=== PATIENT | male | born 1975 | race Caucasian/White ===

== ENCOUNTER 2017-09-13 13:09 | Inpatient (IN) | payer OTHER ==
[2017-09-13] MEDS ORDERED: Sodium Chloride 0.9% 1,000 ML IV STA (14:40)
[2017-09-13 14:52] LABS: BASO # 0.2 K/uL (0.0-0.2); EOS # 0.2 K/uL (0.0-0.7); EOS % 1.2 % (0.0-4.0); LYMPH # 1.3 K/uL (1.0-4.3); LYMPH % 7.2 % (20.0-40.0); MEAN CELL VOLUME 82.8 fL (80.0-94.0); MEAN CORPUSCULAR HEMOGLOBIN 28.4 pg (27.0-31.0); MEAN CORPUSCULAR HGB CONC 34.3 g/dL (33.0-37.0); MEAN PLATELET VOLUME 7.6 fL (7.2-11.7); MONO # 0.9 K/uL (0.0-0.8); MONO % 5.1 % (0.0-10.0); NEUT # 14.8 K/uL (1.8-7.0); NEUT % 85.5 % (50.0-75.0); PLATELET COUNT 323 K/uL (130-400); RBC 4.91 Mil/uL (4.40-5.90); RED CELL DISTRIBUTION WIDTH 14.2 % (11.5-14.5); WHITE BLOOD COUNT 17.4 K/uL (4.8-10.8)
[2017-09-13 15:00] LABS: INR 1.4; PROTHROMBIN TIME 15.1 SECONDS (9.7-12.2)
[2017-09-13 15:02] LABS: SQUAMOUS EPITHIAL < 1 /hpf (0-5); URINE BACTERIA RARE (<OCC); URINE BILIRUBIN NEGATIVE (NEGATIVE); URINE BLOOD 1+ (NEGATIVE); URINE CLARITY Clear (Clear); URINE COLOR Amber (YELLOW); URINE GLUCOSE (UA) 3+ mg/dL (Normal); URINE LEUKOCYTE ESTERASE NEG Leu/uL (Negative); URINE PROTEIN NEGATIVE (NEGATIVE)
[2017-09-13 15:02] LABS: VENOUS BLOOD GAS PCO2 34 mmHg (40-60); VENOUS BLOOD GAS PO2 45 mm/Hg (30-55)
[2017-09-13] MEDS ORDERED: Sodium Chloride 0.9% 1,000 ML ONE ×2 (15:06→15:07)
--- NOTE | 2017-09-13 15:17 | RAD ---
PROCEDURE: CHEST RADIOGRAPH, 1 VIEW HISTORY: Fever, cough, RUQ pain COMPARISON: None available. FINDINGS: LUNGS: Medial right lung base patchy infiltrate linear left base atelectasis and/or infiltrate Lung volumes shallow PLEURA: No pneumothorax or pleural fluid seen. CARDIOVASCULAR: Normal. OSSEOUS STRUCTURES: No significant abnormalities. VISUALIZED UPPER ABDOMEN: Normal. OTHER FINDINGS: None. IMPRESSION: Bibasilar infiltrates with or without atelectasis as above
[2017-09-13 15:19] LABS: ALB/GLOB RATIO 0.9 (1.0-2.1); ALBUMIN 3.4 g/dL (3.5-5.0); ALT/SGPT 244 U/L (21-72); AST/SGOT 54 U/L (17-59); BLOOD UREA NITROGEN 13 mg/dL (9-20); GAMMA GLUTAMYL TRANSPEPTIDASE 871 U/L (8-78); GFR AFRICAN-AMERICAN > 60; GFR NON-AFRICAN AMERICAN > 60; LIPASE 13 U/L (23-300)
[2017-09-13 15:42] LABS: EOSINOPHIL 2 % (0-4); LYMPHOCYTE 7 % (20-40); MONOCYTE 6 % (0-10); NEUTROPHIL 85 % (50-75); PLATELET ESTIMATE NORMAL (NORMAL); TOTAL CELLS COUNTED 100
--- NOTE | 2017-09-13 16:19 | US ---
HISTORY: RUQ pain COMPARISON: None. TECHNIQUE: Sonographic evaluation of the right upper quadrant of the abdomen. FINDINGS: LIVER: Measures 18.9 cm in length. Normal echogenicity of the liver parenchyma. No mass. No intrahepatic bile duct dilatation. GALLBLADDER: Cholelithiasis identified within a E distended gallbladder with moderate mural thickening seen diffusely. Mild pericholecystic fluid is identified however there is no sonographic Aragon sign. COMMON BILE DUCT: Measures 5.0 mm. No stones. No dilatation. PANCREAS: The body and neck of the pancreas are unremarkable the remainder obscured by overlying bowel or stomach gas. RIGHT KIDNEY: Measures 12.7 cm in length. Normal echogenicity. No calculus, mass, or hydronephrosis. AORTA: No aneurysmal dilatation. IVC: Unremarkable. OTHER FINDINGS: None . IMPRESSION: Findings suspicious but not definitive for cholecystitis as described above. Further clinical correlation is recommended. No, there is no sonographic Aragon's sign elicited by our technologist. Partial imaging of the pancreas.
[2017-09-13] MEDS ORDERED: Piperacill/Tazo 4.5gm in Dex 4.5 GM/100 ML BAG IVPB STA (16:21)
[2017-09-13] MEDS ORDERED: Lactated Ringer's 1,000 ML IVB STA (16:31)
--- NOTE | 2017-09-13 16:31 | C.PDOC ---
Time Seen by Provider: 09/13/17 14:08 Chief Complaint (Nursing): Abdominal Pain History Per: Patient, Family Onset/Duration Of Symptoms: Days (5) Current Symptoms Are (Timing): Still Present Severity: Moderate Location Of Pain/Discomfort: RUQ Quality Of Discomfort: "Pain" Associated Symptoms: Fever, Nausea, Vomiting, Loss Of Appetite Exacerbating Factors: Food Alleviating Factors: None Additional History Per: Prior Records Past Medical History Reviewed: Historical Data, Nursing Documentation, Vital Signs Vital Signs: Last Vital Signs Temp 98.9 F 09/13/17 13:24 Pulse 99 H 09/13/17 13:24 Resp 20 09/13/17 13:24 BP 110/73 09/13/17 13:24 Pulse Ox 100 09/13/17 16:31 - Medical History PMH: Diabetes, Kidney Stones Surgical History: No Surg Hx Family History: States: Unknown Family Hx - Social History Hx Alcohol Use: No Hx Substance Use: No Review Of Systems Except As Marked, All Systems Reviewed And Found Negative. Constitutional: Positive for: Fever, Malaise Respiratory: Negative for: Shortness of Breath Gastrointestinal: Positive for: Nausea, Vomiting, Abdominal Pain Genitourinary: Negative for: Dysuria, Hematuria Musculoskeletal: Negative for: Neck Pain Skin: Negative for: Rash Neurological: Negative for: Weakness, Numbness Physical Exam - Physical Exam Appears: In Acute Distress (mild), Other (Ill appearing) Skin: Warm, Dry, Jaundice (mild) Head: Atraumatic, Normacephalic Eye(s): bilateral: PERRL, EOMI Neck: Normal ROM, Supple Cardiovascular: Rhythm Regular Respiratory: Normal Breath Sounds, No Accessory Muscle Use Gastrointestinal/Abdominal: Tenderness (RUQ) Back: No CVA Tenderness Extremity: Normal ROM, No Pedal Edema, No Calf Tenderness Neurological/Psych: Oriented x3, Normal Motor, Normal Sensation ED Course And Treatment - Laboratory Results Result Diagrams: 09/13/17 14:48 09/13/17 14:48 Lab Interpretation: Abnormal Interpretation Of Abnormal: Leukocytosis. Hyperglycemia. Abnormal LFTs. No acidosis. O2 Sat by Pulse Oximetry: 100 Pulse Ox Interpretation: Normal - Radiology CXR: Interpreted by Me, Viewed By Me CXR Interpretation: Yes: Other (Poor inspiration. Crowding around right hilum.) Progress - Interventions Interventions:: Observation, Intravenous fluid - Medications Administered Intravenous: Antiemetic, Opiate, Other (Abx) - Data Reviewed Data Reviewed: Lab, Diagnostic imaging, Old records - Patient Status Patient status: Partially improved - Continuity of Care Discussed patient case with:: Patient, Family-HIPPA compliant, ED Nurse, PMD, Covering for PMD - Patient Plan Patient Plan: Admission Disposition Discussed With : Eneida Granados Comment: He accepted pt on his service. Doctor Will See Patient In The: Hospital Counseled Patient/Family Regarding: Studies Performed, Diagnosis - Disposition Disposition: HOSPITALIZED Disposition Time: 16:38 Condition: SERIOUS - POA Present On Arrival: Poor Glycemic Control - Clinical Impression Clinical Impression: Acute cholecystitis, Uncontrolled diabetes mellitus, Abnormal LFTs
[2017-09-13] MEDS ORDERED: Piperacillin/Tazobact 3.375 gm 100 ML IVPB ONE (16:54)
[2017-09-13] MEDS ORDERED: Morphine 4 MG/ML VIAL ONE (16:54)
[2017-09-13] MEDS ORDERED: Lactated Ringer's 1,000 ML ONE (16:54)
[2017-09-13] MEDS: Sodium Chloride 0.9% 1,000 ML IV SCH ×2 (18:25→23:45)
[2017-09-13] MEDS: (Novolin R) Insulin Human Regular 100 units/ml vial SC SCH (18:49)
--- NOTE | 2017-09-13 19:09 | CP.PCM.CON ---
<Natalie Cordero - Last Filed: 09/13/17 19:22> History of Present Illness - History of Present Illness History of Present Illness: Surgery Consult: Dr. Aceves Pt is a 42M with PMHx significant for DM & nephrolithiasis who presented to with complaints of abdominal pain x 5 days. Pt states he has been having Right sided abdominal pain with radiation to the back since tuesday however he initially thought it was similar to his previous episode of kidney stones. When the pain did not get better he went to his PMD yesterday who pelon some labs & pt was instructed to come to the hospital secondary to elevated WBC & liver enzymes. In the ER, an US of the RUQ was done & showed GB with stones, wall thickening & pericholecystic fluid consistent with acute cholecystitis. surgery called to evaluate. Currently, pt is resting comfortably in bed. States his pain is a little better but still present. He states the pain is located in the RUQ & sharp in nature. He admits to one episode of vomiting at home 2 days ago. Admits to subjective fevers/chills at home. Denies other complaints at this time. Denies chest pain or SOB. PMHx: DM, nephrolithiasis s/p lithotripsy in 2017 PSHx: denies SocialHx: denies smoking, EtOH/drugs NKDA Review of Systems - Review of Systems All systems: reviewed and no additional remarkable complaints except (as per HPI ) Past Patient History - Past Social History Smoking Status: Never Smoked - RENAL Hx Kidney Stones: Yes - ENDOCRINE/METABOLIC Hx Diabetes Mellitus Type 2: Yes - PSYCHIATRIC Hx Substance Use: No - SURGICAL HISTORY Hx Surgeries: No - ANESTHESIA Hx Anesthesia: Yes Meds Allergies/Adverse Reactions: Allergies Allergy/AdvReac Type Severity Reaction Status Date / Time No Known Allergies Allergy Unverified 09/13/17 13:28 - Medications Medications: Current Medications Metronidazole (Flagyl) 250 mg in 50 mls @ 100 mls/hr IVPB Q8H [facility] PRN Reason: Protocol Stop: 09/18/17 20:01 Sodium Chloride (Sodium Chloride 0.9%) 1,000 mls @ 175 mls/hr IV .Q5H43M [facility] Last Admin: 09/13/17 18:25 Dose: 175 mls/hr Piperacillin Sod/Tazobactam (Sod 3.375 gm/ Sodium Chloride) 100 mls @ 200 mls/ hr IVPB Q6H [facility] PRN Reason: Protocol Insulin Human Regular (Novolin R) 0 unit SC Q6 [facility] PRN Reason: Protocol Last Admin: 09/13/17 18:49 Dose: 6 unit Morphine Sulfate (Morphine) 2 mg IVP Q4 PRN PRN Reason: Pain, moderate (4-7) Pantoprazole Sodium (Protonix Inj) 40 mg IVP DAILY [facility] Physical Exam - Constitutional Appears: Well, No Acute Distress - Head Exam Head Exam: ATRAUMATIC, NORMOCEPHALIC - Eye Exam Eye Exam: Normal appearance - ENT Exam ENT Exam: Mucous Membranes Moist - Respiratory Exam Respiratory Exam: NORMAL BREATHING PATTERN - Cardiovascular Exam Cardiovascular Exam: Tachycardia - GI/Abdominal Exam GI & Abdominal Exam: Guarding (voluntary), Soft, Tenderness (RUQ). absent: Distended, Rebound - Neurological Exam Neurological exam: Alert, Oriented x3 - Skin Skin Exam: Dry, Warm Results - Vital Signs Recent Vital Signs: Last Vital Signs Temp 99.6 F 09/13/17 17:55 Pulse 95 H 09/13/17 17:55 Resp 20 09/13/17 17:55 BP 131/83 09/13/17 17:55 Pulse Ox 94 L 09/13/17 17:55 - Labs Result Diagrams: 09/13/17 14:48 09/13/17 14:48 Labs: Laboratory Results - last 24 hr 09/13/17 09/13/17 09/13/17 13:33 14:48 14:48 WBC 17.4 H RBC 4.91 Hgb 14.0 Hct 40.7 MCV 82.8 MCH 28.4 MCHC 34.3 RDW 14.2 Plt Count 323 MPV 7.6 Neut % (Auto) 85.5 H Lymph % (Auto) 7.2 L [place] % (Auto) 5.1 Eos % (Auto) 1.2 Baso % (Auto) 1.0 Neut # (Auto) 14.8 H Lymph # (Auto) 1.3 [place] # (Auto) 0.9 H Eos # (Auto) 0.2 Baso # (Auto) 0.2 Neutrophils % (Manual) 85 H Lymphocytes % (Manual) 7 L Monocytes % (Manual) 6 Eosinophils % (Manual) 2 Platelet Estimate Normal RBC Morphology Normal PT 15.1 H INR 1.4 APTT 38 H pO2 VBG pH VBG pCO2 VBG HCO3 VBG Total CO2 VBG O2 Sat (Calc) VBG Base Excess VBG Potassium Glucose Lactate Sodium Potassium Chloride Carbon Dioxide Anion Gap BUN Creatinine Est GFR ( Amer) Est GFR (Non-Af Amer) POC Glucose (mg/dL) 394 H Random Glucose Calcium Total Bilirubin Direct Bilirubin GGT AST ALT Alkaline Phosphatase Total Protein Albumin Globulin Albumin/Globulin Ratio Lipase Venous Blood Potassium Urine Color Urine Clarity Urine pH Ur Specific [place] Urine Protein Urine Glucose (UA) Urine Ketones Urine Blood Urine Nitrate Urine Bilirubin Urine Urobilinogen Ur Leukocyte Esterase Urine WBC (Auto) Urine RBC (Auto) Ur Squamous Epith Cells Urine Bacteria B-Hydroxybutyrate 09/13/17 09/13/17 09/13/17 14:48 14:48 14:57 WBC RBC Hgb Hct MCV MCH MCHC RDW Plt Count MPV Neut % (Auto) Lymph % (Auto) [place] % (Auto) Eos % (Auto) Baso % (Auto) Neut # (Auto) Lymph # (Auto) [place] # (Auto) Eos # (Auto) Baso # (Auto) Neutrophils % (Manual) Lymphocytes % (Manual) Monocytes % (Manual) Eosinophils % (Manual) Platelet Estimate RBC Morphology PT INR APTT pO2 45 VBG pH 7.40 VBG pCO2 34 L VBG HCO3 22.1 VBG Total CO2 22.1 VBG O2 Sat (Calc) 86.7 H VBG Base Excess -3.0 L VBG Potassium 3.3 L Glucose 350 H Lactate 1.3 Sodium 130 L 134.0 Potassium 4.2 Chloride 93 L 100.0 Carbon Dioxide 24 Anion Gap 18 BUN 13 Creatinine 0.7 L Est GFR ( Amer) > 60 Est GFR (Non-Af Amer) > 60 POC Glucose (mg/dL) Random Glucose 406 H* Calcium 9.0 Total Bilirubin 3.8 H Direct Bilirubin 3.0 H GGT 871 H AST 54 ALT 244 H Alkaline Phosphatase 669 H Total Protein 7.2 Albumin 3.4 L Globulin 3.9 Albumin/Globulin Ratio 0.9 L Lipase 13 L Venous Blood Potassium 3.3 L Urine Color Kaylynn Urine Clarity Clear Urine pH 6.0 Ur Specific [place] 1.030 Urine Protein Negative Urine Glucose (UA) 3+ H Urine Ketones 1+ H Urine Blood 1+ H Urine Nitrate Negative Urine Bilirubin Negative Urine Urobilinogen 4.0 Ur Leukocyte Esterase Neg Urine WBC (Auto) 2 Urine RBC (Auto) 4 H Ur Squamous Epith Cells < 1 Urine Bacteria Rare B-Hydroxybutyrate 1.82 H 09/13/17 17:21 WBC RBC Hgb Hct MCV MCH MCHC RDW Plt Count MPV Neut % (Auto) Lymph % (Auto) [place] % (Auto) Eos % (Auto) Baso % (Auto) Neut # (Auto) Lymph # (Auto) [place] # (Auto) Eos # (Auto) Baso # (Auto) Neutrophils % (Manual) Lymphocytes % (Manual) Monocytes % (Manual) Eosinophils % (Manual) Platelet Estimate RBC Morphology PT INR APTT pO2 VBG pH VBG pCO2 VBG HCO3 VBG Total CO2 VBG O2 Sat (Calc) VBG Base Excess VBG Potassium Glucose Lactate Sodium Potassium Chloride Carbon Dioxide Anion Gap BUN Creatinine Est GFR ( Amer) Est GFR (Non-Af Amer) POC Glucose (mg/dL) 324 H Random Glucose Calcium Total Bilirubin Direct Bilirubin GGT AST ALT Alkaline Phosphatase Total Protein Albumin Globulin Albumin/Globulin Ratio Lipase Venous Blood Potassium Urine Color Urine Clarity Urine pH Ur Specific [place] Urine Protein Urine Glucose (UA) Urine Ketones Urine Blood Urine Nitrate Urine Bilirubin Urine Urobilinogen Ur Leukocyte Esterase Urine WBC (Auto) Urine RBC (Auto) Ur Squamous Epith Cells Urine Bacteria B-Hydroxybutyrate - Imaging and Cardiology US - abdomen Status: Image reviewed by me, Report reviewed by me Assessment & Plan - Assessment and Plan (Free Text) Assessment: 42M with cholecystitis r/o choledocholithiasis Plan: - NPO with IVF & IV ABX - Monitor LFTs - MRCP ordered; GI on board - plan for cholecystectomy pending MRCP results - d/w dr. Ketan Cordero, PGY-3 <Dagoberto Aceves B - Last Filed: 09/14/17 20:17> Meds - Medications Medications: Current Medications Acetaminophen (Tylenol 325mg Tab) 975 mg PO Q6 PRN PRN Reason: Fever >100.4 F Metronidazole (Flagyl) 250 mg in 50 mls @ 100 mls/hr IVPB Q8H [facility] PRN Reason: Protocol Stop: 09/18/17 20:01 Last Admin: 09/14/17 11:57 Dose: 100 mls/hr Sodium Chloride (Sodium Chloride 0.9%) 1,000 mls @ 175 mls/hr IV .Q5H43M [facility] Last Admin: 09/14/17 18:00 Dose: 0 mls Piperacillin Sod/Tazobactam (Sod 3.375 gm/ Sodium Chloride) 100 mls @ 200 mls/ hr IVPB Q6H [facility] PRN Reason: Protocol Last Admin: 09/14/17 17:10 Dose: 100 mls Insulin Human Regular (Novolin R) 0 unit SC Q6 [facility] PRN Reason: Protocol Last Admin: 09/14/17 11:59 Dose: Not Given Morphine Sulfate (Morphine) 2 mg IVP Q4 PRN PRN Reason: Pain, moderate (4-7) Last Admin: 09/14/17 05:57 Dose: 2 mg Ondansetron HCl (Zofran Inj) 4 mg IVP Q4 PRN PRN Reason: Nausea/Vomiting Oxycodone/Acetaminophen (Percocet 5/325 Mg Tab) 2 tab PO Q4H PRN PRN Reason: Pain, Mild (1-3) Stop: 09/17/17 16:52 Pantoprazole Sodium (Protonix Inj) 40 mg IVP DAILY [facility] Last Admin: 09/14/17 10:01 Dose: 40 mg Results - Vital Signs Recent Vital Signs: Last Vital Signs Temp 98.1 F 09/14/17 18:00 Pulse 101 H 09/14/17 19:20 Resp 20 09/14/17 18:00 BP 125/81 09/14/17 18:00 Pulse Ox 97 09/14/17 18:00 - Labs Result Diagrams: 09/14/17 07:28 09/14/17 07:28 Labs: Laboratory Results - last 24 hr 09/13/17 09/14/17 09/14/17 23:00 03:24 05:15 WBC RBC Hgb Hct MCV MCH MCHC RDW Plt Count MPV Neut % (Auto) Lymph % (Auto) [place] % (Auto) Eos % (Auto) Baso % (Auto) Neut # (Auto) Lymph # (Auto) [place] # (Auto) Eos # (Auto) Baso # (Auto) Neutrophils % (Manual) Band Neutrophils % Lymphocytes % (Manual) Monocytes % (Manual) Eosinophils % (Manual) Platelet Estimate RBC Morphology Sodium Potassium Chloride Carbon Dioxide Anion Gap BUN Creatinine Est GFR ( Amer) Est GFR (Non-Af Amer) POC Glucose (mg/dL) 328 H 240 H 281 H Random Glucose Calcium Total Bilirubin AST ALT Alkaline Phosphatase Total Protein Albumin Globulin Albumin/Globulin Ratio 09/14/17 09/14/17 09/14/17 07:28 07:28 07:28 WBC 13.6 H RBC 4.36 L Hgb 12.3 Hct 36.2 MCV 83.0 MCH 28.2 MCHC 34.0 RDW 14.0 Plt Count 324 MPV 7.7 Neut % (Auto) 85.3 H Lymph % (Auto) 6.7 L [place] % (Auto) 6.0 Eos % (Auto) 1.7 Baso % (Auto) 0.3 Neut # (Auto) 11.6 H Lymph # (Auto) 0.9 L [place] # (Auto) 0.8 Eos # (Auto) 0.2 Baso # (Auto) 0.0 Neutrophils % (Manual) 83 H Band Neutrophils % 2 Lymphocytes % (Manual) 7 L Monocytes % (Manual) 7 Eosinophils % (Manual) 1 Platelet Estimate Normal RBC Morphology Normal Sodium 137 Potassium 3.8 Chloride 102 Carbon Dioxide 21 L Anion Gap 18 BUN 8 L Creatinine 0.5 L Est GFR ( Amer) > 60 Est GFR (Non-Af Amer) > 60 POC Glucose (mg/dL) 279 H Random Glucose 278 H Calcium 8.1 L Total Bilirubin 2.4 H AST 32 ALT 144 H D Alkaline Phosphatase 536 H Total Protein 6.2 L Albumin 2.9 L Globulin 3.3 Albumin/Globulin Ratio 0.9 L 09/14/17 09/14/17 11:31 17:11 WBC RBC Hgb Hct MCV MCH MCHC RDW Plt Count MPV Neut % (Auto) Lymph % (Auto) [place] % (Auto) Eos % (Auto) Baso % (Auto) Neut # (Auto) Lymph # (Auto) [place] # (Auto) Eos # (Auto) Baso # (Auto) Neutrophils % (Manual) Band Neutrophils % Lymphocytes % (Manual) Monocytes % (Manual) Eosinophils % (Manual) Platelet Estimate RBC Morphology Sodium Potassium Chloride Carbon Dioxide Anion Gap BUN Creatinine Est GFR ( Amer) Est GFR (Non-Af Amer) POC Glucose (mg/dL) 247 H 317 H Random Glucose Calcium Total Bilirubin AST ALT Alkaline Phosphatase Total Protein Albumin Globulin Albumin/Globulin Ratio Attending/Attestation - Attestation I have personally seen and examined this patient.: Yes I have fully participated in the care of the patient.: Yes I have reviewed all pertinent clinical information: Yes Notes (Text): Pt was seen and examined at bedside Agree with above note and assessment Pt with severe pain and nauses Abdomen: Soft, Tender in RUQ, ND Labs and radiology reviewed Ass: Acute Cholecystitis with abnormal LFTs Plan : MRCP GI consult for ERCP Medical clearance EKG ,CXR CBC, BMP,PT/INR Plan d.w pt in detail Risk and benefit explained in detail.
[2017-09-13] MEDS: metroNIDAZOLE IV 250mg/50 ml 250 MG/50 ML BAG IVPB SCH (20:51)
[2017-09-13] MEDS: Piperacillin/Tazobact 3.375 GM in Sodium Chloride 100 ML IVPB SCH (22:15)
--- NOTE | 2017-09-13 22:39 | CP.PCM.HP ---
History of Present Illness - History of Present Illness History of Present Illness: Chief complaint: Abdominal pain History of present illness: 42-year-old male with a history of diabetes and renal stones. Patient has a history of long-standing diabetes. He was in his usual state of health until 1 week ago. A week ago patient started having some pain in the left upper extremity while he was walking in the output. He went to the chiropractic for that, and he had some massage therapy, but no improvement. And he started having some pain over the abdominal area especially in the right upper quadrant, associated with some sharp pain, and some nausea. He went to see the PMD. PMD did blood test, showing evidence of elevated WBC, and also blood sugar and he was sent to the emergency room for a suspected intra-abdominal process. In the emergency room patient having increasing pain in the right upper quadrant region, and associated with nausea and episodes of vomiting and shortness of breath. He was having difficulty in deep breath. He did not have any chest pain, she was also having fever and chills yesterday. This morning patient was not able to eat anything by mouth because of the worsening pain He did not have any diarrhea. No recent sick exposure. Past medical history: Diabetes, renal stones, headache history of lithotripsy in 2017 Surgical history otherwise none Social history: Non-smoker nonalcoholic Patient lives by himself. No known drug allergy Review of system: Patient is currently having no headache or visual symptoms, dryness of the mouth noted, also complaining of right upper quadrant pain nausea and episodes of vomiting no diarrhea no leg pain On examination: Vital signs are stable. Chest good air entry bilaterally Regular heart sounds Abdominal tenderness in the right upper quadrant nodes are noted No rebound tenderness noted. Pedal edema negative Labs reviewed Elevated WBC noted, elevated liver function test and alkaline phosphatase noted Sonogram of the abdomen showing evidence of gallstones, and pericolic fluid and the gallbladder wall thickening noted suspected acute cholecystitis Patient received intravenous antibiotic in the emergency room, and needed hospitalization. Patient also had uncontrolled diabetes Assessment and recommendation: 42-year-old male now admitted with a possible uncontrolled diabetes, and associate with a possible acute cholecystitis, cholelithiasis, and possible cholangitis. Currently receiving intravenous antibiotic. We will closely monitor. MRCP ordered. Surgical consultation ordered. Evaluation by drums teacher advised. Spoke to the drums teacher. We will continue the IV hydration. We will follow the patient. Present on Admission - Present on Admission Any Indicators Present on Admission: No Urinary Catheter: No Decubitus Ulcer Present: No Past Patient History - Past Medical History & Family History Past Medical History?: Yes - Past Social History Smoking Status: Never Smoked - RENAL Hx Kidney Stones: Yes (lithotripsy 2016) - ENDOCRINE/METABOLIC Hx Diabetes Mellitus Type 2: Yes - MUSCULOSKELETAL/RHEUMATOLOGICAL Hx Falls: No - PSYCHIATRIC Hx Substance Use: No - SURGICAL HISTORY Hx Surgeries: No - ANESTHESIA Hx Anesthesia: Yes Meds Allergies/Adverse Reactions: Allergies Allergy/AdvReac Type Severity Reaction Status Date / Time No Known Allergies Allergy Unverified 09/13/17 13:28 Results - Vital Signs Recent Vital Signs: Last Vital Signs Temp 99.6 F 09/13/17 17:55 Pulse 95 H 09/13/17 17:55 Resp 20 09/13/17 17:55 BP 131/83 09/13/17 17:55 Pulse Ox 94 L 09/13/17 17:55 - Labs Result Diagrams: 09/13/17 14:48 09/13/17 14:48 Labs: Laboratory Results - last 24 hr 09/13/17 09/13/17 09/13/17 13:33 14:48 14:48 WBC 17.4 H RBC 4.91 Hgb 14.0 Hct 40.7 MCV 82.8 MCH 28.4 MCHC 34.3 RDW 14.2 Plt Count 323 MPV 7.6 Neut % (Auto) 85.5 H Lymph % (Auto) 7.2 L [place] % (Auto) 5.1 Eos % (Auto) 1.2 Baso % (Auto) 1.0 Neut # (Auto) 14.8 H Lymph # (Auto) 1.3 [place] # (Auto) 0.9 H Eos # (Auto) 0.2 Baso # (Auto) 0.2 Neutrophils % (Manual) 85 H Lymphocytes % (Manual) 7 L Monocytes % (Manual) 6 Eosinophils % (Manual) 2 Platelet Estimate Normal RBC Morphology Normal PT 15.1 H INR 1.4 APTT 38 H pO2 VBG pH VBG pCO2 VBG HCO3 VBG Total CO2 VBG O2 Sat (Calc) VBG Base Excess VBG Potassium Glucose Lactate Sodium Potassium Chloride Carbon Dioxide Anion Gap BUN Creatinine Est GFR ( Amer) Est GFR (Non-Af Amer) POC Glucose (mg/dL) 394 H Random Glucose Calcium Total Bilirubin Direct Bilirubin GGT AST ALT Alkaline Phosphatase Total Protein Albumin Globulin Albumin/Globulin Ratio Lipase Venous Blood Potassium Urine Color Urine Clarity Urine pH Ur Specific [place] Urine Protein Urine Glucose (UA) Urine Ketones Urine Blood Urine Nitrate Urine Bilirubin Urine Urobilinogen Ur Leukocyte Esterase Urine WBC (Auto) Urine RBC (Auto) Ur Squamous Epith Cells Urine Bacteria B-Hydroxybutyrate 09/13/17 09/13/17 09/13/17 14:48 14:48 14:57 WBC RBC Hgb Hct MCV MCH MCHC RDW Plt Count MPV Neut % (Auto) Lymph % (Auto) [place] % (Auto) Eos % (Auto) Baso % (Auto) Neut # (Auto) Lymph # (Auto) [place] # (Auto) Eos # (Auto) Baso # (Auto) Neutrophils % (Manual) Lymphocytes % (Manual) Monocytes % (Manual) Eosinophils % (Manual) Platelet Estimate RBC Morphology PT INR APTT pO2 45 VBG pH 7.40 VBG pCO2 34 L VBG HCO3 22.1 VBG Total CO2 22.1 VBG O2 Sat (Calc) 86.7 H VBG Base Excess -3.0 L VBG Potassium 3.3 L Glucose 350 H Lactate 1.3 Sodium 130 L 134.0 Potassium 4.2 Chloride 93 L 100.0 Carbon Dioxide 24 Anion Gap 18 BUN 13 Creatinine 0.7 L Est GFR ( Amer) > 60 Est GFR (Non-Af Amer) > 60 POC Glucose (mg/dL) Random Glucose 406 H* Calcium 9.0 Total Bilirubin 3.8 H Direct Bilirubin 3.0 H GGT 871 H AST 54 ALT 244 H Alkaline Phosphatase 669 H Total Protein 7.2 Albumin 3.4 L Globulin 3.9 Albumin/Globulin Ratio 0.9 L Lipase 13 L Venous Blood Potassium 3.3 L Urine Color Kaylynn Urine Clarity Clear Urine pH 6.0 Ur Specific [place] 1.030 Urine Protein Negative Urine Glucose (UA) 3+ H Urine Ketones 1+ H Urine Blood 1+ H Urine Nitrate Negative Urine Bilirubin Negative Urine Urobilinogen 4.0 Ur Leukocyte Esterase Neg Urine WBC (Auto) 2 Urine RBC (Auto) 4 H Ur Squamous Epith Cells < 1 Urine Bacteria Rare B-Hydroxybutyrate 1.82 H 09/13/17 09/13/17 17:21 20:10 WBC RBC Hgb Hct MCV MCH MCHC RDW Plt Count MPV Neut % (Auto) Lymph % (Auto) [place] % (Auto) Eos % (Auto) Baso % (Auto) Neut # (Auto) Lymph # (Auto) [place] # (Auto) Eos # (Auto) Baso # (Auto) Neutrophils % (Manual) Lymphocytes % (Manual) Monocytes % (Manual) Eosinophils % (Manual) Platelet Estimate RBC Morphology PT INR APTT pO2 VBG pH VBG pCO2 VBG HCO3 VBG Total CO2 VBG O2 Sat (Calc) VBG Base Excess VBG Potassium Glucose Lactate Sodium Potassium Chloride Carbon Dioxide Anion Gap BUN Creatinine Est GFR ( Amer) Est GFR (Non-Af Amer) POC Glucose (mg/dL) 324 H 347 H Random Glucose Calcium Total Bilirubin Direct Bilirubin GGT AST ALT Alkaline Phosphatase Total Protein Albumin Globulin Albumin/Globulin Ratio Lipase Venous Blood Potassium Urine Color Urine Clarity Urine pH Ur Specific [place] Urine Protein Urine Glucose (UA) Urine Ketones Urine Blood Urine Nitrate Urine Bilirubin Urine Urobilinogen Ur Leukocyte Esterase Urine WBC (Auto) Urine RBC (Auto) Ur Squamous Epith Cells Urine Bacteria B-Hydroxybutyrate
[2017-09-14] MEDS: (Novolin R) Insulin Human Regular 100 units/ml vial SC SCH ×4 (00:40→18:00)
[2017-09-14] MEDS: Sodium Chloride 0.9% 1,000 ML IV SCH ×6 (01:30→21:50)
[2017-09-14] MEDS: metroNIDAZOLE IV 250mg/50 ml 250 MG/50 ML BAG IVPB SCH ×3 (04:09→20:00)
[2017-09-14] MEDS: Piperacillin/Tazobact 3.375 GM in Sodium Chloride 100 ML IVPB SCH ×4 (05:14→22:54)
[2017-09-14] MEDS: Morphine 4 MG/ML VIAL IVP PRN (05:57)
[2017-09-14 07:46] LABS: BASO % 0.3 % (0.0-2.0); EOS # 0.2 K/uL (0.0-0.7); EOS % 1.7 % (0.0-4.0); HEMOGLOBIN 12.3 g/dL (12.0-18.0); LYMPH # 0.9 K/uL (1.0-4.3); LYMPH % 6.7 % (20.0-40.0); MEAN CORPUSCULAR HEMOGLOBIN 28.2 pg (27.0-31.0); MEAN PLATELET VOLUME 7.7 fL (7.2-11.7); MONO # 0.8 K/uL (0.0-0.8); NEUT # 11.6 K/uL (1.8-7.0); NEUT % 85.3 % (50.0-75.0); PLATELET COUNT 324 K/uL (130-400); RBC 4.36 Mil/uL (4.40-5.90); WHITE BLOOD COUNT 13.6 K/uL (4.8-10.8)
[2017-09-14 07:52] LABS: ALB/GLOB RATIO 0.9 (1.0-2.1); ALBUMIN 2.9 g/dL (3.5-5.0); ALT/SGPT 144 U/L (21-72); AST/SGOT 32 U/L (17-59); BLOOD UREA NITROGEN 8 mg/dL (9-20); CALCIUM 8.1 mg/dl (8.6-10.4); GFR AFRICAN-AMERICAN > 60; GFR NON-AFRICAN AMERICAN > 60
[2017-09-14 08:24] LABS: BANDS 2 % (0-2); EOSINOPHIL 1 % (0-4); LYMPHOCYTE 7 % (20-40); MONOCYTE 7 % (0-10); NEUTROPHIL 83 % (50-75); PLATELET ESTIMATE NORMAL (NORMAL); TOTAL CELLS COUNTED 100
[2017-09-14] MEDS ORDERED: Gadodiamide 287 mg/ml 20 ml IV ONE (09:00)
--- NOTE | 2017-09-14 09:40 | CP.PCM.CON ---
<Wally Beckett - Last Filed: 09/14/17 09:40> History of Present Illness - History of Present Illness History of Present Illness: PGY4 Initial GI Consult Anurag Gant is a 42-M with a history of diabetes and renal stones who presented to the ER with RUQ pain. Pt states that the onset was 1 week prior. He notes being in his normal states of health prior to this. He noted that the pain was sudden and sharp with some radiation to the LUQ. He also experienced associated nausea and bilious vomiting. Aggravating factors: meals, alleviating factors: none. Denies any fever, chills or diaphoresis. He notes having a hx of chronic diarrhea for many years. Had a colonoscopy with Dr. Devi 2 years prior and was told it was negative. Since then, he has tried eliminating different foods from his diet with minimal reduction in symptoms. Since admission, his pain has decreased slight and he is hungry/ Abd u/s possible acute nichole, CBD 5mm w/o cbd dilatation and filling defect. MRCP read is pending. LFTs are elevated PMHx: DM, renal stone PSHx: lithotripsy Social Hx: denies alcohol or smoking or illicit drug use Family hx: reviewed; no Gi malignancy ROS: 12 point ROS conducted, neg other than above Past Patient History - Past Medical History & Family History Past Medical History?: Yes - Past Social History Smoking Status: Never Smoked - RENAL Hx Kidney Stones: Yes (lithotripsy 2017) - ENDOCRINE/METABOLIC Hx Diabetes Mellitus Type 2: Yes - MUSCULOSKELETAL/RHEUMATOLOGICAL Hx Falls: No - PSYCHIATRIC Hx Substance Use: No - SURGICAL HISTORY Hx Surgeries: No - ANESTHESIA Hx Anesthesia: Yes Meds Allergies/Adverse Reactions: Allergies Allergy/AdvReac Type Severity Reaction Status Date / Time No Known Allergies Allergy Unverified 09/13/17 13:28 - Medications Medications: Current Medications Metronidazole (Flagyl) 250 mg in 50 mls @ 100 mls/hr IVPB Q8H [facility] PRN Reason: Protocol Stop: 09/18/17 20:01 Last Admin: 09/14/17 04:09 Dose: 100 mls/hr Sodium Chloride (Sodium Chloride 0.9%) 1,000 mls @ 175 mls/hr IV .Q5H43M [facility] Last Admin: 09/14/17 06:01 Dose: Not Given Piperacillin Sod/Tazobactam (Sod 3.375 gm/ Sodium Chloride) 100 mls @ 200 mls/ hr IVPB Q6H [facility] PRN Reason: Protocol Last Admin: 09/14/17 05:14 Dose: 200 mls/hr Insulin Human Regular (Novolin R) 0 unit SC Q6 [facility] PRN Reason: Protocol Last Admin: 09/14/17 06:02 Dose: Not Given Morphine Sulfate (Morphine) 2 mg IVP Q4 PRN PRN Reason: Pain, moderate (4-7) Last Admin: 09/14/17 05:57 Dose: 2 mg Pantoprazole Sodium (Protonix Inj) 40 mg IVP DAILY [facility] Pneumococcal Polyvalent Vaccine (Pneumovax 23 Vaccine) 0.5 ml IM .ONCE ONE Stop: 09/14/17 10:01 Physical Exam - Constitutional Appears: Well, No Acute Distress - Head Exam Head Exam: ATRAUMATIC, NORMOCEPHALIC - Eye Exam Eye Exam: Normal appearance - ENT Exam ENT Exam: Normal Exam - Neck Exam Neck exam: Positive for: Normal Inspection - Respiratory Exam Respiratory Exam: Clear to Auscultation Bilateral, NORMAL BREATHING PATTERN. absent: Rales, Rhonchi, Wheezes, Respiratory Distress - Cardiovascular Exam Cardiovascular Exam: REGULAR RHYTHM, +S1, +S2 - GI/Abdominal Exam GI & Abdominal Exam: Normal Bowel Sounds, Soft, Tenderness (RUQ). absent: Diminished Bowel Sounds, Distended, Firm, Guarding, Hernia, Pulsatile Mass, Rebound, Rigid - Extremities Exam Extremities exam: Negative for: joint swelling, pedal edema - Back Exam Back exam: NORMAL INSPECTION - Neurological Exam Neurological exam: Alert, Oriented x3 - Skin Skin Exam: Dry, Intact, Normal Color, Warm Results - Vital Signs Recent Vital Signs: Last Vital Signs Temp 98.8 F 09/13/17 23:29 Pulse 85 09/13/17 23:29 Resp 20 09/13/17 23:29 BP 126/80 09/13/17 23:29 Pulse Ox 97 09/13/17 23:29 - Labs Result Diagrams: 09/14/17 07:28 09/14/17 07:28 Labs: Laboratory Results - last 24 hr 09/13/17 09/13/17 09/13/17 13:33 14:48 14:48 WBC 17.4 H RBC 4.91 Hgb 14.0 Hct 40.7 MCV 82.8 MCH 28.4 MCHC 34.3 RDW 14.2 Plt Count 323 MPV 7.6 Neut % (Auto) 85.5 H Lymph % (Auto) 7.2 L [place] % (Auto) 5.1 Eos % (Auto) 1.2 Baso % (Auto) 1.0 Neut # (Auto) 14.8 H Lymph # (Auto) 1.3 [place] # (Auto) 0.9 H Eos # (Auto) 0.2 Baso # (Auto) 0.2 Neutrophils % (Manual) 85 H Band Neutrophils % Lymphocytes % (Manual) 7 L Monocytes % (Manual) 6 Eosinophils % (Manual) 2 Platelet Estimate Normal RBC Morphology Normal PT 15.1 H INR 1.4 APTT 38 H pO2 VBG pH VBG pCO2 VBG HCO3 VBG Total CO2 VBG O2 Sat (Calc) VBG Base Excess VBG Potassium Glucose Lactate Sodium Potassium Chloride Carbon Dioxide Anion Gap BUN Creatinine Est GFR ( Amer) Est GFR (Non-Af Amer) POC Glucose (mg/dL) 394 H Random Glucose Calcium Total Bilirubin Direct Bilirubin GGT AST ALT Alkaline Phosphatase Total Protein Albumin Globulin Albumin/Globulin Ratio Lipase Venous Blood Potassium Urine Color Urine Clarity Urine pH Ur Specific [place] Urine Protein Urine Glucose (UA) Urine Ketones Urine Blood Urine Nitrate Urine Bilirubin Urine Urobilinogen Ur Leukocyte Esterase Urine WBC (Auto) Urine RBC (Auto) Ur Squamous Epith Cells Urine Bacteria B-Hydroxybutyrate 09/13/17 09/13/17 09/13/17 14:48 14:48 14:57 WBC RBC Hgb Hct MCV MCH MCHC RDW Plt Count MPV Neut % (Auto) Lymph % (Auto) [place] % (Auto) Eos % (Auto) Baso % (Auto) Neut # (Auto) Lymph # (Auto) [place] # (Auto) Eos # (Auto) Baso # (Auto) Neutrophils % (Manual) Band Neutrophils % Lymphocytes % (Manual) Monocytes % (Manual) Eosinophils % (Manual) Platelet Estimate RBC Morphology PT INR APTT pO2 45 VBG pH 7.40 VBG pCO2 34 L VBG HCO3 22.1 VBG Total CO2 22.1 VBG O2 Sat (Calc) 86.7 H VBG Base Excess -3.0 L VBG Potassium 3.3 L Glucose 350 H Lactate 1.3 Sodium 130 L 134.0 Potassium 4.2 Chloride 93 L 100.0 Carbon Dioxide 24 Anion Gap 18 BUN 13 Creatinine 0.7 L Est GFR ( Amer) > 60 Est GFR (Non-Af Amer) > 60 POC Glucose (mg/dL) Random Glucose 406 H* Calcium 9.0 Total Bilirubin 3.8 H Direct Bilirubin 3.0 H GGT 871 H AST 54 ALT 244 H Alkaline Phosphatase 669 H Total Protein 7.2 Albumin 3.4 L Globulin 3.9 Albumin/Globulin Ratio 0.9 L Lipase 13 L Venous Blood Potassium 3.3 L Urine Color Kaylynn Urine Clarity Clear Urine pH 6.0 Ur Specific [place] 1.030 Urine Protein Negative Urine Glucose (UA) 3+ H Urine Ketones 1+ H Urine Blood 1+ H Urine Nitrate Negative Urine Bilirubin Negative Urine Urobilinogen 4.0 Ur Leukocyte Esterase Neg Urine WBC (Auto) 2 Urine RBC (Auto) 4 H Ur Squamous Epith Cells < 1 Urine Bacteria Rare B-Hydroxybutyrate 1.82 H 09/13/17 09/13/17 09/13/17 17:21 20:10 23:00 WBC RBC Hgb Hct MCV MCH MCHC RDW Plt Count MPV Neut % (Auto) Lymph % (Auto) [place] % (Auto) Eos % (Auto) Baso % (Auto) Neut # (Auto) Lymph # (Auto) [place] # (Auto) Eos # (Auto) Baso # (Auto) Neutrophils % (Manual) Band Neutrophils % Lymphocytes % (Manual) Monocytes % (Manual) Eosinophils % (Manual) Platelet Estimate RBC Morphology PT INR APTT pO2 VBG pH VBG pCO2 VBG HCO3 VBG Total CO2 VBG O2 Sat (Calc) VBG Base Excess VBG Potassium Glucose Lactate Sodium Potassium Chloride Carbon Dioxide Anion Gap BUN Creatinine Est GFR ( Amer) Est GFR (Non-Af Amer) POC Glucose (mg/dL) 324 H 347 H 328 H Random Glucose Calcium Total Bilirubin Direct Bilirubin GGT AST ALT Alkaline Phosphatase Total Protein Albumin Globulin Albumin/Globulin Ratio Lipase Venous Blood Potassium Urine Color Urine Clarity Urine pH Ur Specific [place] Urine Protein Urine Glucose (UA) Urine Ketones Urine Blood Urine Nitrate Urine Bilirubin Urine Urobilinogen Ur Leukocyte Esterase Urine WBC (Auto) Urine RBC (Auto) Ur Squamous Epith Cells Urine Bacteria B-Hydroxybutyrate 09/14/17 09/14/17 09/14/17 03:24 05:15 07:28 WBC 13.6 H RBC 4.36 L Hgb 12.3 Hct 36.2 MCV 83.0 MCH 28.2 MCHC 34.0 RDW 14.0 Plt Count 324 MPV 7.7 Neut % (Auto) 85.3 H Lymph % (Auto) 6.7 L [place] % (Auto) 6.0 Eos % (Auto) 1.7 Baso % (Auto) 0.3 Neut # (Auto) 11.6 H Lymph # (Auto) 0.9 L [place] # (Auto) 0.8 Eos # (Auto) 0.2 Baso # (Auto) 0.0 Neutrophils % (Manual) 83 H Band Neutrophils % 2 Lymphocytes % (Manual) 7 L Monocytes % (Manual) 7 Eosinophils % (Manual) 1 Platelet Estimate Normal RBC Morphology Normal PT INR APTT pO2 VBG pH VBG pCO2 VBG HCO3 VBG Total CO2 VBG O2 Sat (Calc) VBG Base Excess VBG Potassium Glucose Lactate Sodium Potassium Chloride Carbon Dioxide Anion Gap BUN Creatinine Est GFR ( Amer) Est GFR (Non-Af Amer) POC Glucose (mg/dL) 240 H 281 H Random Glucose Calcium Total Bilirubin Direct Bilirubin GGT AST ALT Alkaline Phosphatase Total Protein Albumin Globulin Albumin/Globulin Ratio Lipase Venous Blood Potassium Urine Color Urine Clarity Urine pH Ur Specific [place] Urine Protein Urine Glucose (UA) Urine Ketones Urine Blood Urine Nitrate Urine Bilirubin Urine Urobilinogen Ur Leukocyte Esterase Urine WBC (Auto) Urine RBC (Auto) Ur Squamous Epith Cells Urine Bacteria B-Hydroxybutyrate 09/14/17 09/14/17 07:28 07:28 WBC RBC Hgb Hct MCV MCH MCHC RDW Plt Count MPV Neut % (Auto) Lymph % (Auto) [place] % (Auto) Eos % (Auto) Baso % (Auto) Neut # (Auto) Lymph # (Auto) [place] # (Auto) Eos # (Auto) Baso # (Auto) Neutrophils % (Manual) Band Neutrophils % Lymphocytes % (Manual) Monocytes % (Manual) Eosinophils % (Manual) Platelet Estimate RBC Morphology PT INR APTT pO2 VBG pH VBG pCO2 VBG HCO3 VBG Total CO2 VBG O2 Sat (Calc) VBG Base Excess VBG Potassium Glucose Lactate Sodium 137 Potassium 3.8 Chloride 102 Carbon Dioxide 21 L Anion Gap 18 BUN 8 L Creatinine 0.5 L Est GFR ( Amer) > 60 Est GFR (Non-Af Amer) > 60 POC Glucose (mg/dL) 279 H Random Glucose 278 H Calcium 8.1 L Total Bilirubin 2.4 H Direct Bilirubin GGT AST 32 ALT 144 H D Alkaline Phosphatase 536 H Total Protein 6.2 L Albumin 2.9 L Globulin 3.3 Albumin/Globulin Ratio 0.9 L Lipase Venous Blood Potassium Urine Color Urine Clarity Urine pH Ur Specific [place] Urine Protein Urine Glucose (UA) Urine Ketones Urine Blood Urine Nitrate Urine Bilirubin Urine Urobilinogen Ur Leukocyte Esterase Urine WBC (Auto) Urine RBC (Auto) Ur Squamous Epith Cells Urine Bacteria B-Hydroxybutyrate Assessment & Plan - Assessment and Plan (Free Text) Assessment: Anurag Gant is a 42M w/ hx of DM and renal stones who presents with RUQ pain Elevated liver enzymes and bilirubin Possible Acute Cholecystitis hx of DM chronic diarrhea Plan: -MRCP done waiting on final read -as per our interpretation, no obvious cbd dilatation or filling defect; will wait on final radiologist final read -will send for hep viral serology and autoimmune -U/S reviewed -recommend f/u w/ Dr. Devi as an outpt for chronic diarrhea -will send infectious w/u -recommend lap nichole -diet as per surgery -no plan for procedure at this time, will wait on final MRCP read D/W Dr. Shaw <Frde Shaw - Last Filed: 09/14/17 11:15> Meds - Medications Medications: Current Medications Metronidazole (Flagyl) 250 mg in 50 mls @ 100 mls/hr IVPB Q8H [facility] PRN Reason: Protocol Stop: 09/18/17 20:01 Last Admin: 09/14/17 04:09 Dose: 100 mls/hr Sodium Chloride (Sodium Chloride 0.9%) 1,000 mls @ 175 mls/hr IV .Q5H43M [facility] Last Admin: 09/14/17 10:04 Dose: 175 mls/hr Piperacillin Sod/Tazobactam (Sod 3.375 gm/ Sodium Chloride) 100 mls @ 200 mls/ hr IVPB Q6H [facility] PRN Reason: Protocol Last Admin: 09/14/17 10:01 Dose: 200 mls/hr Insulin Human Regular (Novolin R) 0 unit SC Q6 [facility] PRN Reason: Protocol Last Admin: 09/14/17 06:02 Dose: Not Given Morphine Sulfate (Morphine) 2 mg IVP Q4 PRN PRN Reason: Pain, moderate (4-7) Last Admin: 09/14/17 05:57 Dose: 2 mg Pantoprazole Sodium (Protonix Inj) 40 mg IVP DAILY [facility] Last Admin: 09/14/17 10:01 Dose: 40 mg Results - Vital Signs Recent Vital Signs: Last Vital Signs Temp 98.8 F 09/13/17 23:29 Pulse 85 09/13/17 23:29 Resp 20 09/13/17 23:29 BP 126/80 09/13/17 23:29 Pulse Ox 97 09/13/17 23:29 - Labs Result Diagrams: 09/14/17 07:28 09/14/17 07:28 Labs: Laboratory Results - last 24 hr 09/13/17 09/13/17 09/13/17 13:33 14:48 14:48 WBC 17.4 H RBC 4.91 Hgb 14.0 Hct 40.7 MCV 82.8 MCH 28.4 MCHC 34.3 RDW 14.2 Plt Count 323 MPV 7.6 Neut % (Auto) 85.5 H Lymph % (Auto) 7.2 L [place] % (Auto) 5.1 Eos % (Auto) 1.2 Baso % (Auto) 1.0 Neut # (Auto) 14.8 H Lymph # (Auto) 1.3 [place] # (Auto) 0.9 H Eos # (Auto) 0.2 Baso # (Auto) 0.2 Neutrophils % (Manual) 85 H Band Neutrophils % Lymphocytes % (Manual) 7 L Monocytes % (Manual) 6 Eosinophils % (Manual) 2 Platelet Estimate Normal RBC Morphology Normal PT 15.1 H INR 1.4 APTT 38 H pO2 VBG pH VBG pCO2 VBG HCO3 VBG Total CO2 VBG O2 Sat (Calc) VBG Base Excess VBG Potassium Glucose Lactate Sodium Potassium Chloride Carbon Dioxide Anion Gap BUN Creatinine Est GFR ( Amer) Est GFR (Non-Af Amer) POC Glucose (mg/dL) 394 H Random Glucose Calcium Total Bilirubin Direct Bilirubin GGT AST ALT Alkaline Phosphatase Total Protein Albumin Globulin Albumin/Globulin Ratio Lipase Venous Blood Potassium Urine Color Urine Clarity Urine pH Ur Specific [place] Urine Protein Urine Glucose (UA) Urine Ketones Urine Blood Urine Nitrate Urine Bilirubin Urine Urobilinogen Ur Leukocyte Esterase Urine WBC (Auto) Urine RBC (Auto) Ur Squamous Epith Cells Urine Bacteria B-Hydroxybutyrate 0609/13/17 09/13/17 14:48 14:48 14:57 WBC RBC Hgb Hct MCV MCH MCHC RDW Plt Count MPV Neut % (Auto) Lymph % (Auto) [place] % (Auto) Eos % (Auto) Baso % (Auto) Neut # (Auto) Lymph # (Auto) [place] # (Auto) Eos # (Auto) Baso # (Auto) Neutrophils % (Manual) Band Neutrophils % Lymphocytes % (Manual) Monocytes % (Manual) Eosinophils % (Manual) Platelet Estimate RBC Morphology PT INR APTT pO2 45 VBG pH 7.40 VBG pCO2 34 L VBG HCO3 22.1 VBG Total CO2 22.1 VBG O2 Sat (Calc) 86.7 H VBG Base Excess -3.0 L VBG Potassium 3.3 L Glucose 350 H Lactate 1.3 Sodium 130 L 134.0 Potassium 4.2 Chloride 93 L 100.0 Carbon Dioxide 24 Anion Gap 18 BUN 13 Creatinine 0.7 L Est GFR ( Amer) > 60 Est GFR (Non-Af Amer) > 60 POC Glucose (mg/dL) Random Glucose 406 H* Calcium 9.0 Total Bilirubin 3.8 H Direct Bilirubin 3.0 H GGT 871 H AST 54 ALT 244 H Alkaline Phosphatase 669 H Total Protein 7.2 Albumin 3.4 L Globulin 3.9 Albumin/Globulin Ratio 0.9 L Lipase 13 L Venous Blood Potassium 3.3 L Urine Color Kaylynn Urine Clarity Clear Urine pH 6.0 Ur Specific [place] 1.030 Urine Protein Negative Urine Glucose (UA) 3+ H Urine Ketones 1+ H Urine Blood 1+ H Urine Nitrate Negative Urine Bilirubin Negative Urine Urobilinogen 4.0 Ur Leukocyte Esterase Neg Urine WBC (Auto) 2 Urine RBC (Auto) 4 H Ur Squamous Epith Cells < 1 Urine Bacteria Rare B-Hydroxybutyrate 1.82 H 09/13/17 09/13/17 09/13/17 17:21 20:10 23:00 WBC RBC Hgb Hct MCV MCH MCHC RDW Plt Count MPV Neut % (Auto) Lymph % (Auto) [place] % (Auto) Eos % (Auto) Baso % (Auto) Neut # (Auto) Lymph # (Auto) [place] # (Auto) Eos # (Auto) Baso # (Auto) Neutrophils % (Manual) Band Neutrophils % Lymphocytes % (Manual) Monocytes % (Manual) Eosinophils % (Manual) Platelet Estimate RBC Morphology PT INR APTT pO2 VBG pH VBG pCO2 VBG HCO3 VBG Total CO2 VBG O2 Sat (Calc) VBG Base Excess VBG Potassium Glucose Lactate Sodium Potassium Chloride Carbon Dioxide Anion Gap BUN Creatinine Est GFR ( Amer) Est GFR (Non-Af Amer) POC Glucose (mg/dL) 324 H 347 H 328 H Random Glucose Calcium Total Bilirubin Direct Bilirubin GGT AST ALT Alkaline Phosphatase Total Protein Albumin Globulin Albumin/Globulin Ratio Lipase Venous Blood Potassium Urine Color Urine Clarity Urine pH Ur Specific [place] Urine Protein Urine Glucose (UA) Urine Ketones Urine Blood Urine Nitrate Urine Bilirubin Urine Urobilinogen Ur Leukocyte Esterase Urine WBC (Auto) Urine RBC (Auto) Ur Squamous Epith Cells Urine Bacteria B-Hydroxybutyrate 09/14/17 09/14/17 09/14/17 03:24 05:15 07:28 WBC 13.6 H RBC 4.36 L Hgb 12.3 Hct 36.2 MCV 83.0 MCH 28.2 MCHC 34.0 RDW 14.0 Plt Count 324 MPV 7.7 Neut % (Auto) 85.3 H Lymph % (Auto) 6.7 L [place] % (Auto) 6.0 Eos % (Auto) 1.7 Baso % (Auto) 0.3 Neut # (Auto) 11.6 H Lymph # (Auto) 0.9 L [place] # (Auto) 0.8 Eos # (Auto) 0.2 Baso # (Auto) 0.0 Neutrophils % (Manual) 83 H Band Neutrophils % 2 Lymphocytes % (Manual) 7 L Monocytes % (Manual) 7 Eosinophils % (Manual) 1 Platelet Estimate Normal RBC Morphology Normal PT INR APTT pO2 VBG pH VBG pCO2 VBG HCO3 VBG Total CO2 VBG O2 Sat (Calc) VBG Base Excess VBG Potassium Glucose Lactate Sodium Potassium Chloride Carbon Dioxide Anion Gap BUN Creatinine Est GFR ( Amer) Est GFR (Non-Af Amer) POC Glucose (mg/dL) 240 H 281 H Random Glucose Calcium Total Bilirubin Direct Bilirubin GGT AST ALT Alkaline Phosphatase Total Protein Albumin Globulin Albumin/Globulin Ratio Lipase Venous Blood Potassium Urine Color Urine Clarity Urine pH Ur Specific [place] Urine Protein Urine Glucose (UA) Urine Ketones Urine Blood Urine Nitrate Urine Bilirubin Urine Urobilinogen Ur Leukocyte Esterase Urine WBC (Auto) Urine RBC (Auto) Ur Squamous Epith Cells Urine Bacteria B-Hydroxybutyrate 09/14/17 09/14/17 07:28 07:28 WBC RBC Hgb Hct MCV MCH MCHC RDW Plt Count MPV Neut % (Auto) Lymph % (Auto) [place] % (Auto) Eos % (Auto) Baso % (Auto) Neut # (Auto) Lymph # (Auto) [place] # (Auto) Eos # (Auto) Baso # (Auto) Neutrophils % (Manual) Band Neutrophils % Lymphocytes % (Manual) Monocytes % (Manual) Eosinophils % (Manual) Platelet Estimate RBC Morphology PT INR APTT pO2 VBG pH VBG pCO2 VBG HCO3 VBG Total CO2 VBG O2 Sat (Calc) VBG Base Excess VBG Potassium Glucose Lactate Sodium 137 Potassium 3.8 Chloride 102 Carbon Dioxide 21 L Anion Gap 18 BUN 8 L Creatinine 0.5 L Est GFR ( Amer) > 60 Est GFR (Non-Af Amer) > 60 POC Glucose (mg/dL) 279 H Random Glucose 278 H Calcium 8.1 L Total Bilirubin 2.4 H Direct Bilirubin GGT AST 32 ALT 144 H D Alkaline Phosphatase 536 H Total Protein 6.2 L Albumin 2.9 L Globulin 3.3 Albumin/Globulin Ratio 0.9 L Lipase Venous Blood Potassium Urine Color Urine Clarity Urine pH Ur Specific [place] Urine Protein Urine Glucose (UA) Urine Ketones Urine Blood Urine Nitrate Urine Bilirubin Urine Urobilinogen Ur Leukocyte Esterase Urine WBC (Auto) Urine RBC (Auto) Ur Squamous Epith Cells Urine Bacteria B-Hydroxybutyrate Attending/Attestation - Attestation I have personally seen and examined this patient.: Yes I have fully participated in the care of the patient.: Yes I have reviewed all pertinent clinical information: Yes Notes (Text): 09/14/17 11:14 42 year old male who presents with abdominal pain and elevated lfts found to have gallstones. Await MRCP, r/o choledocholithiasis, but negative per my read. LFT pattern may indicate chronic liver disease due to another cause. Recommend workup as above for viral/autoimmune causes and outpatient follow up. Recommend surgery for cholecystitis.
[2017-09-14] MEDS ORDERED: Pneumococcal 23-Valent Vaccine IM ONE (10:00)
--- NOTE | 2017-09-14 12:02 | MRI ---
PROCEDURE: Magnetic Resonance Cholangiopancreatography HISTORY: COMPARISON: Correlations made to right upper quadrant ultrasound dated 09/13/2017. TECHNIQUE: Multiplanar, multisequence MR images of the abdomen were obtained, including heavily T2 weighted MRCP images of the biliary system. Rotating maximum intensity projection images of the biliary system were generated. 16 mL Omniscan injected intravenously. FINDINGS: MRCP: Low insertion of the right common duct into the common hepatic duct. The common bile duct is of a normal caliber. No evidence of choledocholithiasis. No intrahepatic biliary ductal dilatation. LIVER: Unremarkable. GALLBLADDER: Gallbladder distention with minimal cholelithiasis, gallbladder wall thickening/ edema and pericholecystic fluid. SPLEEN: Unremarkable. PANCREAS: Unremarkable. ADRENALS: Unremarkable. KIDNEYS: Unremarkable. AORTA: No aneurysm. ASCITES: None. OTHER FINDINGS: None. IMPRESSION: Cholelithiasis with gallbladder wall thickening/ edema and pericholecystic fluid highly suspicious for acute cholecystitis. Low insertion of the right common duct into the common hepatic duct, an uncommon, but normal variant. No evidence of choledocholithiasis. No abnormal enhancing masses.
[2017-09-14] MEDS ORDERED: Propofol 10 mg/ml Inj (20 ML) ONE ×2 (13:43→15:31)
[2017-09-14] MEDS ORDERED: Midazolam 2 MG/2 ML VIAL ONE (13:43)
[2017-09-14] MEDS ORDERED: ceFAZolin 1 gm in NS 0 GM/0 ML BAG IVPB ONE (13:45)
[2017-09-14] MEDS ORDERED: Succinylcholine Chloride 20 mg/ml Syr (5 ml) IV ONE (14:02)
[2017-09-14] MEDS: Lidocaine/Epinephrine 1% 1:100000 10 ML IJ ONE ×2 (14:40→14:42)
[2017-09-14] MEDS ORDERED: Bupivacaine HCl 0.25% PF (30 ml) Inj ONE (15:07)
[2017-09-14] MEDS ORDERED: Morphine 4 MG/ML VIAL ONE (16:08)
[2017-09-14] MEDS ORDERED: Dexamethasone 4 mg/1 ml IVP PRN (16:12)
[2017-09-14] MEDS ORDERED: HYDROmorphone 0.5 mg/0.5 ml ISec IVP PRN (16:12)
--- NOTE | 2017-09-14 16:41 | PCM.SURG1 ---
Surgeon's Initial Post Op Note - Surgeon's Notes Surgeon: Dr. Aceves Fireproof Door Assembler: Philip Condon PGY2, [place] Type of Anesthesia: General Endo, Local Anesthesia Administered By: Martha Pre-Operative Diagnosis: cholecystitis Operative Findings: gangrenous gallbladdder Post-Operative Diagnosis: acute cholecystitis Operation Performed: robotic laparoscopic cholecytectomy Specimen/Specimens Removed: gallbladder Estimated Blood Loss: EBL {In ML}: 50 Blood Products Given: N/A Drains Used: Kian Post-Op Condition: Good Date of Surgery/Procedure: 09/14/17 Time of Surgery/Procedure: 16:40
[2017-09-14] MEDS ORDERED: Oxycodone/Acetaminophen 5/325 mg Tab PO PRN (16:51)
[2017-09-14 19:45] VITALS: RESP 20
--- NOTE | 2017-09-14 21:53 | CP.PCM.PN ---
Subjective - Date & Time of Evaluation Date of Evaluation: 09/14/17 Time of Evaluation: 21:52 - Subjective Subjective: Patient is morning had MRCP. He was kept nothing by mouth. Receiving IV fluids. The glucose is controlled better. Complaining of increasing pain. Patient later underwent cholecystectomy. According to the surgeon patient had a nearly gangrenous gallbladder, with distention, and very much adhesions On examination: Patient is comfortable. Not in any distress. Postoperative pain noted, no nausea vomiting Vital signs otherwise stable. Labs reviewed MRCP showing evidence of cholecystitis Assessment and recommendation: 42-year-old male admitted with acute cholecystitis, uncontrolled diabetes, and associated with the cholestasis. Improving Status post cholecystectomy. Will continue to monitor. Pain management IV fluid will repeat the labs tomorrow on antibiotic and will follow the patient Objective - Vital Signs/Intake and Output Vital Signs (last 24 hours): Temp Pulse Resp BP Pulse Ox 98.1 F 101 H 20 125/81 97 09/14/17 18:00 09/14/17 19:20 09/14/17 18:00 09/14/17 18:00 09/14/17 18:00 Intake and Output: 09/14/17 09/15/17 18:59 06:59 Intake Total 3400 Balance 3400 - Medications Medications: Current Medications Acetaminophen (Tylenol 325mg Tab) 975 mg PO Q6 PRN PRN Reason: Fever >100.4 F Metronidazole (Flagyl) 250 mg in 50 mls @ 100 mls/hr IVPB Q8H [facility] PRN Reason: Protocol Stop: 09/18/17 20:01 Last Admin: 09/14/17 20:00 Dose: 100 mls/hr Piperacillin Sod/Tazobactam (Sod 3.375 gm/ Sodium Chloride) 100 mls @ 200 mls/ hr IVPB Q6H [facility] PRN Reason: Protocol Last Admin: 09/14/17 17:10 Dose: 100 mls Sodium Chloride (Sodium Chloride 0.9%) 1,000 mls @ 125 mls/hr IV .Q8H [facility] Insulin Human Regular (Novolin R) 0 unit SC Q6 [facility] PRN Reason: Protocol Last Admin: 09/14/17 18:00 Dose: 6 unit Morphine Sulfate (Morphine) 2 mg IVP Q4 PRN PRN Reason: Pain, moderate (4-7) Last Admin: 09/14/17 05:57 Dose: 2 mg Ondansetron HCl (Zofran Inj) 4 mg IVP Q4 PRN PRN Reason: Nausea/Vomiting Oxycodone/Acetaminophen (Percocet 5/325 Mg Tab) 2 tab PO Q4H PRN PRN Reason: Pain, Mild (1-3) Stop: 09/17/17 16:52 Pantoprazole Sodium (Protonix Inj) 40 mg IVP DAILY [facility] Last Admin: 09/14/17 10:01 Dose: 40 mg - Labs Labs: 09/14/17 07:28 09/14/17 07:28 PT 15.1 SECONDS (9.7-12.2) H 09/13/17 14:48 INR 1.4 09/13/17 14:48 APTT 38 SECONDS (21-34) H 09/13/17 14:48
[2017-09-15] MEDS: Morphine 4 MG/ML VIAL IVP PRN ×4 (03:30→20:29)
[2017-09-15] MEDS: metroNIDAZOLE IV 250mg/50 ml 250 MG/50 ML BAG IVPB SCH ×3 (03:32→19:05)
--- NOTE | 2017-09-15 03:39 | OP ---
PROCEDURE DATE: 09/14/2017 PREOPERATIVE DIAGNOSES: 1. Acute cholecystitis with cholelithiasis. 2. Sepsis with abnormal liver function tests. 3. Morbid obesity. 4. Chronic liver disease. POSTOPERATIVE DIAGNOSES: 1. Acute phlegmonous necrotizing cholecystitis with cholelithiasis. 2. Gallbladder wall necrosis and abscess. 3. Extensive postinfectious adhesions and collections. 4. Morbid obesity. 5. Chronic liver disease. PROCEDURES DONE: 1. Robotic cholecystectomy. 2. Robotic drainage of right upper quadrant collection and gallbladder abscess. 3. Robotic extensive lysis of adhesions. 4. Liver biopsy. SURGEON: Dagoberto Aceves MD ASSISTANTS: ISAMAR Huggins and Ilsa, PGY-2 resident. ANESTHESIA: General endotracheal tube anesthesia. ESTIMATED BLOOD LOSS: Around 50 mL. DRAINS: A 19-Canadian Kian drain was placed. COMPLICATIONS: None. INTRAOPERATIVE FINDINGS: The patient had acute phlegmonous necrotizing cholecystitis with necrosis of the gallbladder wall and gallbladder abscess as well as pericholecystic fluid collection and multiple abscesses with extensive postinfectious adhesion in the right upper quadrant. DESCRIPTION OF PROCEDURE: On intraoperative steps, this is a 42-year-old male who was diagnosed with acute cholecystitis and cholelithiasis. The patient was consented for the robotic cholecystectomy, possible open, brought to the OR, placed supine on the operating table. After induction of anesthesia, the abdomen was prepped and draped in the usual sterile fashion. The supraumbilical transverse incision was made after incising the skin, subcutaneous tissue, and fascia. The robotic camera port was placed. Pneumo was created. Another 4-8 mm port was placed in the upper abdomen,and robot was brought in. Camera arm as well as arm 1 and arm 2 were docked. The patient had a large phlegmon of omentum that was stuck to the gallbladder as well as the colon and the duodenum. The first extensive lysis of adhesion was done. The patient had necrosis of the gallbladder wall up to the infundibulum, and first exploration of the gallbladder was done and infected bile was drained. The pericholecystic collection as well as multiple abscesses were also drained, and the gallbladder was retracted cranially. The Calot's triangle dissection was done. Due to the extensive infection and inflammation, there was oozing all over. Hemostasis was achieved. The cystic duct and cystic artery were identified. Intraoperative Firefly was used, and the top-down approach was done. Critical view of the safety was also identified. After that, the cystic duct and cystic artery were clipped at 3 places and cut in between 2 clips nearby gallbladder, and the gallbladder was dissected free from the gallbladder fossa. Due to the large size of the gallbladder and due to the extensive abnormal bleeding and due to the extensive nature of the disease, it took approximately 40-60 minutes extra for the routine procedure. After complete dissection of the gallbladder, the edge of the liver was taken for the liver biopsy due to the preoperative diagnosis of chronic liver disease. After the hemostasis was achieved, a 19-Canadian Kian drain was placed, and the drain was secured to the skin. All the instruments were taken out. All the ports were taken out easily and under vision, pneumo was deflated. The umbilical port site had to extend another 3-4 cm in order to remove the large specimen. The umbilical port site was closed using multiple 0 Vicryl sutures, skin with a 4-0 Monocryl, and dry sterile dressing was applied. The patient tolerated the procedure well. Count of instruments and gauze was correct. There were no apparent complications. The patient was extubated in the OR, sent to the postanesthesia care unit in stable condition. Dagoberto Aceves MD
[2017-09-15] MEDS: Piperacillin/Tazobact 3.375 GM in Sodium Chloride 100 ML IVPB SCH ×4 (04:48→22:08)
[2017-09-15] MEDS: (Novolin R) Insulin Human Regular 100 units/ml vial SC SCH ×5 (06:17→21:43)
[2017-09-15] MEDS: Sodium Chloride 0.9% 1,000 ML IV SCH (06:27)
[2017-09-15 06:45] LABS: BASO % 0.4 % (0.0-2.0); EOS # 0.1 K/uL (0.0-0.7); EOS % 0.7 % (0.0-4.0); HEMOGLOBIN 11.6 g/dL (12.0-18.0); LYMPH # 0.8 K/uL (1.0-4.3); MEAN CELL VOLUME 82.9 fL (80.0-94.0); MEAN CORPUSCULAR HGB CONC 33.8 g/dL (33.0-37.0); MEAN PLATELET VOLUME 7.5 fL (7.2-11.7); MONO # 0.6 K/uL (0.0-0.8); NEUT # 8.4 K/uL (1.8-7.0); NEUT % 84.9 % (50.0-75.0); PLATELET COUNT 327 K/uL (130-400); RBC 4.15 Mil/uL (4.40-5.90); RED CELL DISTRIBUTION WIDTH 14.4 % (11.5-14.5); WHITE BLOOD COUNT 9.9 K/uL (4.8-10.8)
[2017-09-15 07:03] LABS: ALB/GLOB RATIO 0.9 (1.0-2.1); ALBUMIN 2.8 g/dL (3.5-5.0); ALT/SGPT 120 U/L (21-72); AST/SGOT 83 U/L (17-59); BILIRUBIN,DIRECT 1.1 mg/dL (0.0-0.4); BLOOD UREA NITROGEN 6 mg/dL (9-20); CALCIUM 7.9 mg/dl (8.6-10.4); GFR AFRICAN-AMERICAN > 60; GFR NON-AFRICAN AMERICAN > 60
--- NOTE | 2017-09-15 07:29 | CP.PCM.PN ---
<Ricco Holland - Last Filed: 09/15/17 08:14> Subjective - Date & Time of Evaluation Date of Evaluation: 09/15/17 Time of Evaluation: 07:26 - Subjective Subjective: GI progress note - Pricila Holland PGY2 Patient seen and examined at bedside this morning. No acute overnight events or new complaints reported. Patient states that his post-surgical pain is currently controlled. He has a cecilia drain in place with < 25cc of sanguineous fluid. Denies fever, chills, nausea, vomiting. 12point ROS as per above otherwise negative Objective - Vital Signs/Intake and Output Vital Signs (last 24 hours): Temp Pulse Resp BP Pulse Ox 98.2 F 81 20 137/87 96 09/14/17 23:33 09/14/17 23:33 09/14/17 23:33 09/14/17 23:33 09/14/17 23:33 Intake and Output: 09/15/17 09/15/17 06:59 18:59 Intake Total 900 1640 Output Total 40 70 Balance 860 1570 - Medications Medications: Current Medications Acetaminophen (Tylenol 325mg Tab) 975 mg PO Q6 PRN PRN Reason: Fever >100.4 F Metronidazole (Flagyl) 250 mg in 50 mls @ 100 mls/hr IVPB Q8H [facility] PRN Reason: Protocol Stop: 09/18/17 20:01 Last Admin: 09/15/17 03:32 Dose: 100 mls/hr Piperacillin Sod/Tazobactam (Sod 3.375 gm/ Sodium Chloride) 100 mls @ 200 mls/ hr IVPB Q6H [facility] PRN Reason: Protocol Last Admin: 09/15/17 04:48 Dose: 200 mls/hr Sodium Chloride (Sodium Chloride 0.9%) 1,000 mls @ 125 mls/hr IV .Q8H [facility] Last Admin: 09/15/17 06:27 Dose: 125 mls/hr Insulin Human Regular (Novolin R) 0 unit SC Q6 [facility] PRN Reason: Protocol Last Admin: 09/15/17 06:17 Dose: 6 unit Morphine Sulfate (Morphine) 2 mg IVP Q4 PRN PRN Reason: Pain, moderate (4-7) Last Admin: 09/15/17 03:30 Dose: 2 mg Ondansetron HCl (Zofran Inj) 4 mg IVP Q4 PRN PRN Reason: Nausea/Vomiting Oxycodone/Acetaminophen (Percocet 5/325 Mg Tab) 2 tab PO Q4H PRN PRN Reason: Pain, Mild (1-3) Stop: 09/17/17 16:52 Pantoprazole Sodium (Protonix Inj) 40 mg IVP DAILY [facility] Last Admin: 09/14/17 10:01 Dose: 40 mg - Labs Labs: 09/15/17 06:39 09/15/17 06:39 PT 15.1 SECONDS (9.7-12.2) H 09/13/17 14:48 INR 1.4 09/13/17 14:48 APTT 38 SECONDS (21-34) H 09/13/17 14:48 - Constitutional Appears: No Acute Distress - Head Exam Head Exam: ATRAUMATIC, NORMAL INSPECTION, NORMOCEPHALIC - Eye Exam Eye Exam: EOMI Pupil Exam: PERRL - ENT Exam ENT Exam: Mucous Membranes Moist - Neck Exam Neck Exam: Normal Inspection - Cardiovascular Exam Cardiovascular Exam: +S1, +S2. absent: Gallop, JVD, Rubs - GI/Abdominal Exam GI & Abdominal Exam: Soft, Tenderness. absent: Distended, Firm, Guarding, Rigid , Rebound Additional comments: cecilia drain in place - Extremities Exam Extremities Exam: Normal Inspection. absent: Pedal Edema - Neurological Exam Neurological Exam: Alert, Awake, CN II-XII Intact, Oriented x3 - Psychiatric Exam Psychiatric exam: Normal Affect, Normal Mood - Skin Skin Exam: Dry, Intact, Normal Color, Warm Assessment and Plan - Assessment and Plan (Free Text) Plan: 42yo male with history of DM and renal stones who presents with RUQ pain x1week associated with nausea and vomiting secondary to cholecystitis Elevated liver enzymes and bilirubin Acute Cholecystitis hx of DM hx of chronic diarrhea -MRCP reviewed; no evidence of choledocholithiasis per radiology; as per our interpretation, no obvious cbd dilatation or filling defect -U/S reviewed -Pending hep viral serology and autoimmune workup -Recommend f/u w/ Dr. Devi as an outpt for chronic diarrhea -Patient is s/p lap nichole with cecilia drain in place -diet as per surgery -Pain control -No anticipated GI procedures at this time, please reconsult as deemed necessary Patient seen and case discussed/reviewed with attending, Dr. Carlton <Luis Carlton - Last Filed: 09/15/17 09:39> Objective - Vital Signs/Intake and Output Vital Signs (last 24 hours): Temp Pulse Resp BP Pulse Ox 99.4 F 89 20 144/92 H 98 09/15/17 08:00 09/15/17 08:00 09/15/17 08:00 09/15/17 08:00 09/15/17 08:00 Intake and Output: 09/15/17 09/15/17 06:59 18:59 Intake Total 900 1640 Output Total 40 70 Balance 860 1570 - Medications Medications: Current Medications Acetaminophen (Tylenol 325mg Tab) 975 mg PO Q6 PRN PRN Reason: Fever >100.4 F Enoxaparin Sodium (Lovenox) 30 mg SC DAILY [facility] Metronidazole (Flagyl) 250 mg in 50 mls @ 100 mls/hr IVPB Q8H [facility] PRN Reason: Protocol Stop: 09/18/17 20:01 Last Admin: 09/15/17 03:32 Dose: 100 mls/hr Piperacillin Sod/Tazobactam (Sod 3.375 gm/ Sodium Chloride) 100 mls @ 200 mls/ hr IVPB Q6H [facility] PRN Reason: Protocol Last Admin: 09/15/17 04:48 Dose: 200 mls/hr Potassium Chloride 40 meq/ (Sodium Chloride) 1,020 mls @ 100 mls/hr IV .[id number] [facility] Last Admin: 09/15/17 08:46 Dose: 100 mls/hr Insulin Human Regular (Novolin R) 0 unit SC Q6 [facility] PRN Reason: Protocol Last Admin: 09/15/17 06:17 Dose: 6 unit Morphine Sulfate (Morphine) 2 mg IVP Q4 PRN PRN Reason: Pain, moderate (4-7) Last Admin: 09/15/17 03:30 Dose: 2 mg Ondansetron HCl (Zofran Inj) 4 mg IVP Q4 PRN PRN Reason: Nausea/Vomiting Oxycodone/Acetaminophen (Percocet 5/325 Mg Tab) 2 tab PO Q4H PRN PRN Reason: Pain, Mild (1-3) Stop: 09/17/17 16:52 Pantoprazole Sodium (Protonix Inj) 40 mg IVP DAILY [facility] Last Admin: 09/14/17 10:01 Dose: 40 mg - Labs Labs: 09/15/17 06:39 09/15/17 06:39 PT 15.1 SECONDS (9.7-12.2) H 09/13/17 14:48 INR 1.4 09/13/17 14:48 APTT 38 SECONDS (21-34) H 09/13/17 14:48 Attending/Attestation - Attestation I have personally seen and examined this patient.: Yes I have fully participated in the care of the patient.: Yes I have reviewed all pertinent clinical information, including history, physical exam and plan: Yes Notes (Text): 09/15/17 09:36 I have seen and examined patient with GI fellow and medical office clerk. No acute events overnight, he is seen resting in bed comfortably. Underwent cholecystectomy yesterday without any complications. He reports mild abdominal pain at surgical site but otherwise denies nausea, vomiting, fever/chills. Tolerating PO diet without difficulty. DM Nephrolithiasis Abdominal pain, transaminitis - acute cholecystitis - Diet as tolerated - LFTs trending down, continue to monitor - Awaiting viral hepatitis and autoimmune panel testing - Follow up surgical recommendations - No further planned GI intervention, will sign off case. Please reconsult as necessary, thank you.
--- NOTE | 2017-09-15 07:40 | CP.PCM.PN ---
Subjective - Date & Time of Evaluation Date of Evaluation: 09/15/17 Time of Evaluation: 07:40 - Subjective Subjective: Patient today morning feeling better. Still having some abdominal pain. Tolerating the liquid diet. No chest pain or shortness of breath On examination: Vital signs stable. No fever noted. Chest good air entry regular heart sounds nontender abdomen postoperative No leg edema Vital signs are stable. Labs reviewed WBC markedly improved. Culture showing evidence of beta-hemolytic Streptococcus sensitive Assessment and recommendation: 42-year-old male with a history of diabetes, admitted with acute cholecystitis. Acute liver disease. Currently improving. Status post cholecystectomy. Glucose control. Out of bed to chair. Objective - Vital Signs/Intake and Output Vital Signs (last 24 hours): Temp Pulse Resp BP Pulse Ox 98.2 F 81 20 137/87 96 09/14/17 23:33 09/14/17 23:33 09/14/17 23:33 09/14/17 23:33 09/14/17 23:33 Intake and Output: 09/15/17 09/15/17 06:59 18:59 Intake Total 900 1640 Output Total 40 70 Balance 860 1570 - Medications Medications: Current Medications Acetaminophen (Tylenol 325mg Tab) 975 mg PO Q6 PRN PRN Reason: Fever >100.4 F Metronidazole (Flagyl) 250 mg in 50 mls @ 100 mls/hr IVPB Q8H [facility] PRN Reason: Protocol Stop: 09/18/17 20:01 Last Admin: 09/15/17 03:32 Dose: 100 mls/hr Piperacillin Sod/Tazobactam (Sod 3.375 gm/ Sodium Chloride) 100 mls @ 200 mls/ hr IVPB Q6H [facility] PRN Reason: Protocol Last Admin: 09/15/17 04:48 Dose: 200 mls/hr Sodium Chloride (Sodium Chloride 0.9%) 1,000 mls @ 125 mls/hr IV .Q8H [facility] Last Admin: 09/15/17 06:27 Dose: 125 mls/hr Insulin Human Regular (Novolin R) 0 unit SC Q6 [facility] PRN Reason: Protocol Last Admin: 09/15/17 06:17 Dose: 6 unit Morphine Sulfate (Morphine) 2 mg IVP Q4 PRN PRN Reason: Pain, moderate (4-7) Last Admin: 09/15/17 03:30 Dose: 2 mg Ondansetron HCl (Zofran Inj) 4 mg IVP Q4 PRN PRN Reason: Nausea/Vomiting Oxycodone/Acetaminophen (Percocet 5/325 Mg Tab) 2 tab PO Q4H PRN PRN Reason: Pain, Mild (1-3) Stop: 09/17/17 16:52 Pantoprazole Sodium (Protonix Inj) 40 mg IVP DAILY [facility] Last Admin: 09/14/17 10:01 Dose: 40 mg - Labs Labs: 09/15/17 06:39 09/15/17 06:39 PT 15.1 SECONDS (9.7-12.2) H 09/13/17 14:48 INR 1.4 09/13/17 14:48 APTT 38 SECONDS (21-34) H 09/13/17 14:48
--- NOTE | 2017-09-15 08:01 | CP.PCM.PN ---
<TaurusPhilip - Last Filed: 09/15/17 07:58> Subjective - Date & Time of Evaluation Date of Evaluation: 09/15/17 Time of Evaluation: 07:58 - Subjective Subjective: Surgery Pt seen and examined. No acute events. underwent surgery yesrday. TOlerated it well. Tolerating diet. + void. + amb. Pain improved. Objective - Vital Signs/Intake and Output Vital Signs (last 24 hours): Temp Pulse Resp BP Pulse Ox 98.2 F 81 20 137/87 96 09/14/17 23:33 09/14/17 23:33 09/14/17 23:33 09/14/17 23:33 09/14/17 23:33 Intake and Output: 09/15/17 09/15/17 06:59 18:59 Intake Total 900 1640 Output Total 40 70 Balance 860 1570 - Medications Medications: Current Medications Acetaminophen (Tylenol 325mg Tab) 975 mg PO Q6 PRN PRN Reason: Fever >100.4 F Metronidazole (Flagyl) 250 mg in 50 mls @ 100 mls/hr IVPB Q8H [facility] PRN Reason: Protocol Stop: 09/18/17 20:01 Last Admin: 09/15/17 03:32 Dose: 100 mls/hr Piperacillin Sod/Tazobactam (Sod 3.375 gm/ Sodium Chloride) 100 mls @ 200 mls/ hr IVPB Q6H [facility] PRN Reason: Protocol Last Admin: 09/15/17 04:48 Dose: 200 mls/hr Magnesium Sulfate/Dextrose (Magnesium Sulfate 1 Gm/100 Ml D5w) 1 gm in 100 mls @ 300 mls/hr IVPB Q30M [facility] Stop: 09/15/17 08:49 Potassium Chloride 40 meq/ (Sodium Chloride) 1,020 mls @ 100 mls/hr IV .[id number] [facility] Insulin Human Regular (Novolin R) 0 unit SC Q6 [facility] PRN Reason: Protocol Last Admin: 09/15/17 06:17 Dose: 6 unit Morphine Sulfate (Morphine) 2 mg IVP Q4 PRN PRN Reason: Pain, moderate (4-7) Last Admin: 09/15/17 03:30 Dose: 2 mg Ondansetron HCl (Zofran Inj) 4 mg IVP Q4 PRN PRN Reason: Nausea/Vomiting Oxycodone/Acetaminophen (Percocet 5/325 Mg Tab) 2 tab PO Q4H PRN PRN Reason: Pain, Mild (1-3) Stop: 09/17/17 16:52 Pantoprazole Sodium (Protonix Inj) 40 mg IVP DAILY [facility] Last Admin: 09/14/17 10:01 Dose: 40 mg - Labs Labs: 09/15/17 06:39 09/15/17 06:39 PT 15.1 SECONDS (9.7-12.2) H 09/13/17 14:48 INR 1.4 09/13/17 14:48 APTT 38 SECONDS (21-34) H 09/13/17 14:48 - Constitutional Appears: No Acute Distress - Head Exam Head Exam: ATRAUMATIC, NORMAL INSPECTION, NORMOCEPHALIC - Eye Exam Eye Exam: EOMI, Normal appearance, PERRL Pupil Exam: NORMAL ACCOMODATION, PERRL - ENT Exam ENT Exam: Mucous Membranes Moist, Normal Exam - Neck Exam Neck Exam: Full ROM, Normal Inspection. absent: Lymphadenopathy - Respiratory Exam Respiratory Exam: Clear to Ausculation Bilateral, NORMAL BREATHING PATTERN - Cardiovascular Exam Cardiovascular Exam: REGULAR RHYTHM, +S1, +S2. absent: Murmur - GI/Abdominal Exam GI & Abdominal Exam: Soft, Tenderness, Normal Bowel Sounds. absent: Distended, Firm, Guarding Additional comments: Dressing C/D/I. Drain in place - Extremities Exam Extremities Exam: Full ROM, Normal Capillary Refill, Normal Inspection. absent : Joint Swelling, Pedal Edema - Back Exam Back Exam: NORMAL INSPECTION - Neurological Exam Neurological Exam: Alert, Awake, CN II-XII Intact, Normal Gait, Oriented x3 - Psychiatric Exam Psychiatric exam: Normal Affect, Normal Mood - Skin Skin Exam: Dry, Intact, Normal Color, Warm Assessment and Plan - Assessment and Plan (Free Text) Assessment: POD 1 s/p robotic nichole LFT imrpoveing -Labs -VS -Reg -ABX -Pain/nausea control -GI/DVT ppx Will HENRRY aceves <Dagoberto Aceves - Last Filed: 09/18/17 19:19> Objective - Vital Signs/Intake and Output Vital Signs (last 24 hours): Temp Pulse Resp BP Pulse Ox 98.8 F 83 20 112/80 97 09/17/17 07:47 09/17/17 07:47 09/17/17 07:47 09/17/17 07:47 09/17/17 07:47 - Labs Labs: 09/17/17 08:31 09/17/17 08:31 PT 15.1 SECONDS (9.7-12.2) H 09/13/17 14:48 INR 1.4 09/13/17 14:48 APTT 38 SECONDS (21-34) H 09/13/17 14:48 Attending/Attestation - Attestation I have personally seen and examined this patient.: Yes I have fully participated in the care of the patient.: Yes I have reviewed all pertinent clinical information, including history, physical exam and plan: Yes Notes (Text): Pt was see and examined at bedside Agree with above note and assessment Pt is s/p Robotic Cholecystectomy and drainage of collections Improving clinically LFTs trending down c/w IV antibiotics OOB to walk DVT prophylaxis C.w liquid diet Plan d.w pt in detail
[2017-09-15] MEDS: Magnesium Sulfate 1 gm in D5W 1 GM/100 ML BAG IVPB SCH ×2 (08:04→08:46)
[2017-09-15 08:18] LABS: HEPATITIS B SURFACE AG Negative (NEGATIVE)
[2017-09-15 08:24] LABS: HEPATITIS A IGM NEGATIVE (NEGATIVE); HEPATITIS B CORE AB NEGATIVE (NEGATIVE)
[2017-09-15 08:29] LABS: BANDS 4 % (0-2); EOSINOPHIL 1 % (0-4); LYMPHOCYTE 9 % (20-40); MONOCYTE 4 % (0-10); NEUTROPHIL 82 % (50-75); PLATELET ESTIMATE NORMAL (NORMAL); TOTAL CELLS COUNTED 100; TOXIC GRANULATION PRESENT
[2017-09-15 08:35] LABS: HEPATITIS C ANTIBODY NEGATIVE (NEGATIVE)
[2017-09-15] MEDS: Enoxaparin 30 mg Syringe SC SCH (10:05)
[2017-09-16] MEDS: Morphine 4 MG/ML VIAL IVP PRN ×6 (00:19→22:07)
[2017-09-16] MEDS: metroNIDAZOLE IV 250mg/50 ml 250 MG/50 ML BAG IVPB SCH ×3 (03:13→20:14)
[2017-09-16] MEDS: Piperacillin/Tazobact 3.375 GM in Sodium Chloride 100 ML IVPB SCH ×4 (04:27→22:06)
[2017-09-16 07:51] LABS: ALB/GLOB RATIO 0.9 (1.0-2.1); ALBUMIN 2.7 g/dL (3.5-5.0); ALT/SGPT 88 U/L (21-72); AST/SGOT 61 U/L (17-59); BLOOD UREA NITROGEN 5 mg/dL (9-20); CALCIUM 7.8 mg/dl (8.6-10.4); GFR AFRICAN-AMERICAN > 60; GFR NON-AFRICAN AMERICAN > 60
[2017-09-16] MEDS: (Novolin R) Insulin Human Regular 100 units/ml vial SC SCH ×4 (08:13→21:35)
--- NOTE | 2017-09-16 09:35 | CP.PCM.PN ---
Subjective - Date & Time of Evaluation Date of Evaluation: 09/16/17 Time of Evaluation: 09:35 - Subjective Subjective: Postoperative day 2. Patient is still having some pain. He is still receiving IV fluid. Solid diet today. Tolerating. Patient is being seen by surgery this morning. On examination: Vital signs low-grade fever noted. Blood pressure stable. Chest good air entry regular heart sounds nontender abdomen. Drainage noted in the surgical site. Today labs are showing improved calcium. Blood sugar is fairly controlled. Still having elevated liver function, but slight improvement noted WBC 9.9. Hemoglobin 11.6 Assessment and recommendation: 42-year-old male with history of long-standing diabetes admitted with acute cholecystitis. Status post cholecystectomy. Elevated liver enzymes, hepatitis. We will monitor the liver enzymes again. IV fluid will follow-up the patient Objective - Vital Signs/Intake and Output Vital Signs (last 24 hours): Temp Pulse Resp BP Pulse Ox 99.5 F 87 20 127/83 95 09/16/17 00:00 09/16/17 00:00 09/16/17 00:00 09/16/17 00:00 09/16/17 00:00 Intake and Output: 09/16/17 09/16/17 06:59 18:59 Intake Total 2200 Output Total 50 Balance 2150 - Medications Medications: Current Medications Acetaminophen (Tylenol 325mg Tab) 975 mg PO Q6 PRN PRN Reason: Fever >100.4 F Enoxaparin Sodium (Lovenox) 30 mg SC DAILY [facility] Last Admin: 09/15/17 10:05 Dose: 30 mg Metronidazole (Flagyl) 250 mg in 50 mls @ 100 mls/hr IVPB Q8H [facility] PRN Reason: Protocol Stop: 09/18/17 20:01 Last Admin: 09/16/17 03:13 Dose: 100 mls/hr Piperacillin Sod/Tazobactam (Sod 3.375 gm/ Sodium Chloride) 100 mls @ 200 mls/ hr IVPB Q6H [facility] PRN Reason: Protocol Last Admin: 09/16/17 04:27 Dose: 200 mls/hr Potassium Chloride 40 meq/ (Sodium Chloride) 1,020 mls @ 100 mls/hr IV .[id number] [facility] Last Admin: 09/16/17 03:36 Dose: Not Given Insulin Human Regular (Novolin R) 0 unit SC ACHS [facility] PRN Reason: Protocol Last Admin: 09/16/17 08:13 Dose: 4 units Morphine Sulfate (Morphine) 2 mg IVP Q4 PRN PRN Reason: Pain, moderate (4-7) Last Admin: 09/16/17 04:44 Dose: 2 mg Ondansetron HCl (Zofran Inj) 4 mg IVP Q4 PRN PRN Reason: Nausea/Vomiting Oxycodone/Acetaminophen (Percocet 5/325 Mg Tab) 2 tab PO Q4H PRN PRN Reason: Pain, Mild (1-3) Stop: 09/17/17 16:52 Pantoprazole Sodium (Protonix Inj) 40 mg IVP DAILY [facility] Last Admin: 09/15/17 10:06 Dose: 40 mg - Labs Labs: 09/15/17 06:39 09/16/17 07:15 PT 15.1 SECONDS (9.7-12.2) H 09/13/17 14:48 INR 1.4 09/13/17 14:48 APTT 38 SECONDS (21-34) H 09/13/17 14:48
[2017-09-16] MEDS: Enoxaparin 30 mg Syringe SC SCH (09:57)
[2017-09-16] MEDS: (Lantus) Insulin Glargine, Recombinant SC SCH ×2 (10:07→22:06)
--- NOTE | 2017-09-16 13:59 | CP.PCM.PN ---
<Pino Odom - Last Filed: 09/16/17 14:00> Subjective - Date & Time of Evaluation Date of Evaluation: 09/16/17 Time of Evaluation: 07:00 - Subjective Subjective: General Surgery Progress Note for Dr. Aceves This 42M was seen and evaluated this Am at bedside no acute events overnight. He denies any fevers chill chest pain nausea vomiting. He does however complain of upper abdominal pain. Objective - Vital Signs/Intake and Output Vital Signs (last 24 hours): Temp Pulse Resp BP Pulse Ox 99.5 F 87 20 127/83 95 09/16/17 00:00 09/16/17 00:00 09/16/17 00:00 09/16/17 00:00 09/16/17 00:00 Intake and Output: 09/16/17 09/16/17 06:59 18:59 Intake Total 2200 Output Total 50 Balance 2150 - Medications Medications: Current Medications Enoxaparin Sodium (Lovenox) 30 mg SC DAILY [facility] Last Admin: 09/16/17 09:57 Dose: 30 mg Metronidazole (Flagyl) 250 mg in 50 mls @ 100 mls/hr IVPB Q8H [facility] PRN Reason: Protocol Stop: 09/18/17 20:01 Last Admin: 09/16/17 11:26 Dose: 100 mls/hr Piperacillin Sod/Tazobactam (Sod 3.375 gm/ Sodium Chloride) 100 mls @ 200 mls/ hr IVPB Q6H [facility] PRN Reason: Protocol Last Admin: 09/16/17 11:25 Dose: 200 mls/hr Potassium Chloride 40 meq/ (Sodium Chloride) 1,020 mls @ 100 mls/hr IV .[id number] [facility] Last Admin: 09/16/17 13:46 Dose: Not Given Insulin Glargine (Lantus) 5 unit SC Q12 [facility] Last Admin: 09/16/17 10:07 Dose: 5 units Insulin Human Regular (Novolin R) 0 unit SC ACHS [facility] PRN Reason: Protocol Last Admin: 09/16/17 12:30 Dose: 4 units Morphine Sulfate (Morphine) 2 mg IVP Q4 PRN PRN Reason: Pain, moderate (4-7) Last Admin: 09/16/17 09:58 Dose: 2 mg Ondansetron HCl (Zofran Inj) 4 mg IVP Q4 PRN PRN Reason: Nausea/Vomiting Oxycodone/Acetaminophen (Percocet 5/325 Mg Tab) 2 tab PO Q4H PRN PRN Reason: Pain, Mild (1-3) Stop: 09/17/17 16:52 Pantoprazole Sodium (Protonix Inj) 40 mg IVP DAILY [facility] Last Admin: 09/16/17 09:58 Dose: 40 mg - Labs Labs: 09/15/17 06:39 09/16/17 07:15 PT 15.1 SECONDS (9.7-12.2) H 09/13/17 14:48 INR 1.4 09/13/17 14:48 APTT 38 SECONDS (21-34) H 09/13/17 14:48 - Constitutional Appears: Non-toxic, No Acute Distress - Head Exam Head Exam: ATRAUMATIC, NORMOCEPHALIC - Eye Exam Eye Exam: EOMI - ENT Exam ENT Exam: Mucous Membranes Moist - Respiratory Exam Respiratory Exam: NORMAL BREATHING PATTERN - Cardiovascular Exam Cardiovascular Exam: +S1, +S2 - GI/Abdominal Exam GI & Abdominal Exam: Soft. absent: Firm, Guarding, Rigid, Tenderness Additional comments: Dressing Clean dry and intact, [address] from his cecilia drain - Neurological Exam Neurological Exam: Alert, Awake - Psychiatric Exam Psychiatric exam: Normal Affect, Normal Mood - Skin Skin Exam: Dry, Intact Assessment and Plan - Assessment and Plan (Free Text) Assessment: 42M with acute gangrenous cholecystitis POD #3 s/p lap appy Vital signs stable LFTs decreasing Afebirle Plan: Normal Diet ABX monitor drain output ambulate dvt ppx D/W Dr Ketan Odom PGY2 <Dagoberto Aceves B - Last Filed: 09/18/17 19:33> Objective - Vital Signs/Intake and Output Vital Signs (last 24 hours): Temp Pulse Resp BP Pulse Ox 98.8 F 83 20 112/80 97 09/17/17 07:47 09/17/17 07:47 09/17/17 07:47 09/17/17 07:47 09/17/17 07:47 - Labs Labs: 09/17/17 08:31 09/17/17 08:31 PT 15.1 SECONDS (9.7-12.2) H 09/13/17 14:48 INR 1.4 09/13/17 14:48 APTT 38 SECONDS (21-34) H 09/13/17 14:48 Attending/Attestation - Attestation I have personally seen and examined this patient.: Yes I have fully participated in the care of the patient.: Yes I have reviewed all pertinent clinical information, including history, physical exam and plan: Yes Notes (Text): Pt was see and examined at bedside Agree with above note and assessment Pt Improving clinically LFTs trending down C.w IV antibiotics DC plan Reg diet Plan d.w pt in detail Risk and benefit explained in detail.
[2017-09-16 16:06] VITALS: O2SAT 97
[2017-09-17] MEDS: metroNIDAZOLE IV 250mg/50 ml 250 MG/50 ML BAG IVPB SCH ×2 (03:21→11:46)
[2017-09-17] MEDS: Piperacillin/Tazobact 3.375 GM in Sodium Chloride 100 ML IVPB SCH ×2 (04:41→10:35)
[2017-09-17] MEDS: Morphine 4 MG/ML VIAL IVP PRN ×2 (04:50→10:47)
--- NOTE | 2017-09-17 06:25 | CP.PCM.PN ---
<Pino Odom - Last Filed: 09/17/17 06:23> Subjective - Date & Time of Evaluation Date of Evaluation: 09/17/17 Time of Evaluation: 06:23 - Subjective Subjective: General Surgery Progress Note for Dr. Aceves This 42M was seen and evaluated this AM at bedside no acute events overnight. He denies any fevers chill chest pain nausea vomiting. he is passing gas and moving his bowels. He does however complain of upper abdominal pain. He is ambulating tolerating diet. Kian drain 40cc serosanguinous. Objective - Vital Signs/Intake and Output Vital Signs (last 24 hours): Temp Pulse Resp BP Pulse Ox 98.9 F 86 20 115/78 97 09/16/17 23:32 09/16/17 23:32 09/16/17 23:32 09/16/17 23:32 09/16/17 23:32 Intake and Output: 09/16/17 09/17/17 18:59 06:59 Intake Total 1300 1230 Output Total 20 20 Balance 1280 1210 - Medications Medications: Current Medications Enoxaparin Sodium (Lovenox) 30 mg SC DAILY [facility] Last Admin: 09/16/17 09:57 Dose: 30 mg Metronidazole (Flagyl) 250 mg in 50 mls @ 100 mls/hr IVPB Q8H ALANNA PRN Reason: Protocol Stop: 09/18/17 20:01 Last Admin: 09/17/17 03:21 Dose: 100 mls/hr Piperacillin Sod/Tazobactam (Sod 3.375 gm/ Sodium Chloride) 100 mls @ 200 mls/ hr IVPB Q6H ALANNA PRN Reason: Protocol Last Admin: 09/17/17 04:41 Dose: 200 mls/hr Potassium Chloride 40 meq/ (Sodium Chloride) 1,020 mls @ 100 mls/hr IV .[id number] [facility] Last Admin: 09/17/17 01:48 Dose: 100 mls/hr Insulin Glargine (Lantus) 5 unit SC Q12 [facility] Last Admin: 09/16/17 22:06 Dose: 5 units Insulin Human Regular (Novolin R) 0 unit SC ACHS ALANNA PRN Reason: Protocol Last Admin: 09/16/17 21:35 Dose: Not Given Morphine Sulfate (Morphine) 2 mg IVP Q4 PRN PRN Reason: Pain, moderate (4-7) Last Admin: 09/17/17 04:50 Dose: 2 mg Ondansetron HCl (Zofran Inj) 4 mg IVP Q4 PRN PRN Reason: Nausea/Vomiting Oxycodone/Acetaminophen (Percocet 5/325 Mg Tab) 2 tab PO Q4H PRN PRN Reason: Pain, Mild (1-3) Stop: 09/17/17 16:52 Pantoprazole Sodium (Protonix Inj) 40 mg IVP DAILY ALAN[facility] Last Admin: 09/16/17 09:58 Dose: 40 mg - Labs Labs: 09/15/17 06:39 09/16/17 07:15 PT 15.1 SECONDS (9.7-12.2) H 09/13/17 14:48 INR 1.4 09/13/17 14:48 APTT 38 SECONDS (21-34) H 09/13/17 14:48 - Constitutional Appears: Non-toxic, No Acute Distress - Head Exam Head Exam: ATRAUMATIC, NORMOCEPHALIC - Eye Exam Eye Exam: EOMI - ENT Exam ENT Exam: Mucous Membranes Moist - Respiratory Exam Respiratory Exam: NORMAL BREATHING PATTERN - Cardiovascular Exam Cardiovascular Exam: +S1, +S2 - GI/Abdominal Exam GI & Abdominal Exam: Soft. absent: Firm, Guarding, Rigid, Tenderness Additional comments: Dressing Clean dry and intact, 40 Serosang from his kian drain - Neurological Exam Neurological Exam: Alert, Awake - Psychiatric Exam Psychiatric exam: Normal Affect, Normal Mood - Skin Skin Exam: Dry, Intact Assessment and Plan - Assessment and Plan (Free Text) Assessment: 42M with acute gangrenous cholecystitis POD #4 s/p lap appy Vital signs stable LFTs decreasing Afebrile Plan: Normal Diet ABX monitor drain output ambulate dvt ppx D/W Dr Ketan Odom PGY2 <Dagoberto Aceves - Last Filed: 09/18/17 19:35> Objective - Vital Signs/Intake and Output Vital Signs (last 24 hours): Temp Pulse Resp BP Pulse Ox 98.8 F 83 20 112/80 97 09/17/17 07:47 09/17/17 07:47 09/17/17 07:47 09/17/17 07:47 06/09/18 07:47 - Labs Labs: 09/17/17 08:31 09/17/17 08:31 PT 15.1 SECONDS (9.7-12.2) H 09/13/17 14:48 INR 1.4 09/13/17 14:48 APTT 38 SECONDS (21-34) H 09/13/17 14:48 Attending/Attestation - Attestation I have personally seen and examined this patient.: Yes I have fully participated in the care of the patient.: Yes I have reviewed all pertinent clinical information, including history, physical exam and plan: Yes Notes (Text): Pt is doing well Tolerating diet LFTs normalizes Dc drain DC home with PO levaquin F/u in office next week Plan d.w pt in detail
[2017-09-17 07:48] VITALS: BP 112/80; PULSE 83; TEMP 98.8
[2017-09-17] MEDS: (Novolin R) Insulin Human Regular 100 units/ml vial SC SCH ×2 (08:00→12:30)
[2017-09-17 08:43] LABS: BASO # 0.1 K/uL (0.0-0.2); BASO % 0.7 % (0.0-2.0); EOS # 0.4 K/uL (0.0-0.7); EOS % 5.4 % (0.0-4.0); HEMOGLOBIN 11.8 g/dL (12.0-18.0); LYMPH # 1.4 K/uL (1.0-4.3); MEAN CELL VOLUME 83.3 fL (80.0-94.0); MEAN CORPUSCULAR HGB CONC 33.6 g/dL (33.0-37.0); MEAN PLATELET VOLUME 7.2 fL (7.2-11.7); MONO # 0.7 K/uL (0.0-0.8); MONO % 8.5 % (0.0-10.0); NEUT # 5.6 K/uL (1.8-7.0); NEUT % 68.4 % (50.0-75.0); RBC 4.22 Mil/uL (4.40-5.90); RED CELL DISTRIBUTION WIDTH 14.4 % (11.5-14.5); WHITE BLOOD COUNT 8.3 K/uL (4.8-10.8)
[2017-09-17 09:18] LABS: ALB/GLOB RATIO 0.9 (1.0-2.1); ALBUMIN 2.9 g/dL (3.5-5.0); ALT/SGPT 67 U/L (21-72); AST/SGOT 30 U/L (17-59); BLOOD UREA NITROGEN 6 mg/dL (9-20); CALCIUM 8.1 mg/dl (8.6-10.4)
[2017-09-17 10:10] LABS: GFR AFRICAN-AMERICAN > 60; GFR NON-AFRICAN AMERICAN > 60
[2017-09-17] MEDS: (Lantus) Insulin Glargine, Recombinant SC SCH (10:34)
[2017-09-17] MEDS: Enoxaparin 30 mg Syringe SC SCH (11:00)
--- NOTE | 2017-09-17 12:51 | CP.PCM.DIS ---
Provider - Provider Date of Admission: 09/13/17 16:40 Attending physician: Eneida Granados MD Time Spent in preparation of Discharge (in minutes): 45 Hospital Course - Lab Results Lab Results: Micro Results 09/13/17 14:42 Blood Blood Culture - Preliminary NO GROWTH AFTER 3 DAYS 09/13/17 14:42 Blood Blood Culture - Preliminary NO GROWTH AFTER 3 DAYS 09/14/17 16:20 Other: Please Indicate Mycobacterial Culture - Preliminary 09/13/17 14:48 Urine Urine Culture - Final Beta Hemolytic Strep Group B Most Recent Lab Values WBC 8.3 K/uL (4.8-10.8) 09/17/17 08:31 RBC 4.22 Mil/uL (4.40-5.90) L 09/17/17 08:31 Hgb 11.8 g/dL (12.0-18.0) L 09/17/17 08:31 Hct 35.2 % (35.0-51.0) 09/17/17 08:31 MCV 83.3 fL (80.0-94.0) 09/17/17 08:31 MCH 28.0 pg (27.0-31.0) 09/17/17 08:31 MCHC 33.6 g/dL (33.0-37.0) 09/17/17 08:31 RDW 14.4 % (11.5-14.5) 09/17/17 08:31 Plt Count 403 K/uL (130-400) H 09/17/17 08:31 MPV 7.2 fL (7.2-11.7) 09/17/17 08:31 Neut % (Auto) 68.4 % (50.0-75.0) 09/17/17 08:31 Lymph % (Auto) 17.0 % (20.0-40.0) L 09/17/17 08:31 Crowley % (Auto) 8.5 % (0.0-10.0) 09/17/17 08:31 Eos % (Auto) 5.4 % (0.0-4.0) H 09/17/17 08:31 Baso % (Auto) 0.7 % (0.0-2.0) 09/17/17 08:31 Neut # (Auto) 5.6 K/uL (1.8-7.0) 09/17/17 08:31 Lymph # (Auto) 1.4 K/uL (1.0-4.3) 09/17/17 08:31 Crowley # (Auto) 0.7 K/uL (0.0-0.8) 09/17/17 08:31 Eos # (Auto) 0.4 K/uL (0.0-0.7) 09/17/17 08:31 Baso # (Auto) 0.1 K/uL (0.0-0.2) 09/17/17 08:31 Neutrophils % (Manual) 82 % (50-75) H 09/15/17 06:39 Band Neutrophils % 4 % (0-2) H 09/15/17 06:39 Lymphocytes % (Manual) 9 % (20-40) L 09/15/17 06:39 Monocytes % (Manual) 4 % (0-10) 09/15/17 06:39 Eosinophils % (Manual) 1 % (0-4) 09/15/17 06:39 Toxic Granulation Present 09/15/17 06:39 Platelet Estimate Normal (NORMAL) 09/15/17 06:39 RBC Morphology Normal 09/15/17 06:39 PT 15.1 SECONDS (9.7-12.2) H 09/13/17 14:48 INR 1.4 09/13/17 14:48 APTT 38 SECONDS (21-34) H 09/13/17 14:48 pO2 45 mm/Hg (30-55) 09/13/17 14:57 VBG pH 7.40 (7.32-7.43) 09/13/17 14:57 VBG pCO2 34 mmHg (40-60) L 09/13/17 14:57 VBG HCO3 22.1 mmol/L 09/13/17 14:57 VBG Total CO2 22.1 mmol/L (22-28) 09/13/17 14:57 VBG O2 Sat (Calc) 86.7 % (40-65) H 09/13/17 14:57 VBG Base Excess -3.0 mmol/L (0.0-2.0) L 09/13/17 14:57 VBG Potassium 3.3 mmol/L (3.6-5.2) L 09/13/17 14:57 Sodium 134.0 mmol/l (132-148) 09/13/17 14:57 Chloride 100.0 mmol/L (98-107) 09/13/17 14:57 Glucose 350 mg/dl (75-110) H 09/13/17 14:57 Lactate 1.3 mmol/L (0.7-2.1) 09/13/17 14:57 Sodium 133 mmol/L (132-148) 09/17/17 08:31 Potassium 4.1 mmol/L (3.6-5.2) 09/17/17 08:31 Chloride 97 mmol/L (98-107) L 09/17/17 08:31 Carbon Dioxide 27 mmol/L (22-30) 09/17/17 08:31 Anion Gap 13 (10-20) 09/17/17 08:31 BUN 6 mg/dL (9-20) L 09/17/17 08:31 Creatinine 0.6 mg/dL (0.8-1.5) L 09/17/17 08:31 Est GFR ( Amer) > 60 09/17/17 08:31 Est GFR (Non-Af Amer) > 60 09/17/17 08:31 POC Glucose (mg/dL) 290 mg/dL (65-110) H 09/17/17 11:18 Random Glucose 249 mg/dL (75-110) H 09/17/17 08:31 Hemoglobin A1c 14.4 % (4.2-6.5) H 09/15/17 19:59 Calcium 8.1 mg/dl (8.6-10.4) L 09/17/17 08:31 Magnesium 1.7 mg/dL (1.6-2.3) 09/17/17 08:31 Total Bilirubin 0.8 mg/dL (0.2-1.3) 09/17/17 08:31 Direct Bilirubin 1.1 mg/dL (0.0-0.4) H 09/15/17 06:39 GGT 871 U/L (8-78) H 09/13/17 14:48 AST 30 U/L (17-59) 09/17/17 08:31 ALT 67 U/L (21-72) 09/17/17 08:31 Alkaline Phosphatase 444 U/L (38-126) H 09/17/17 08:31 Total Protein 6.2 g/dL (6.3-8.3) L 09/17/17 08:31 Albumin 2.9 g/dL (3.5-5.0) L 09/17/17 08:31 Globulin 3.4 gm/dL (2.2-3.9) 09/17/17 08:31 Albumin/Globulin Ratio 0.9 (1.0-2.1) L 09/17/17 08:31 Lipase 13 U/L (23-300) L 09/13/17 14:48 Venous Blood Potassium 3.3 mmol/L (3.6-5.2) L 09/13/17 14:57 Urine Color Kaylynn (YELLOW) 09/13/17 14:48 Urine Clarity Clear (Clear) 09/13/17 14:48 Urine pH 6.0 (5.0-8.0) 09/13/17 14:48 Ur Specific [place] 1.030 (1.003-1.030) 09/13/17 14:48 Urine Protein Negative mg/dL (NEGATIVE) 09/13/17 14:48 Urine Glucose (UA) 3+ mg/dL (Normal) H 09/13/17 14:48 Urine Ketones 1+ mg/dL (NEGATIVE) H 09/13/17 14:48 Urine Blood 1+ (NEGATIVE) H 09/13/17 14:48 Urine Nitrate Negative (NEGATIVE) 09/13/17 14:48 Urine Bilirubin Negative (NEGATIVE) 09/13/17 14:48 Urine Urobilinogen 4.0 mg/dL (0.2-1.0) 09/13/17 14:48 Ur Leukocyte Esterase Neg Conrad/uL (Negative) 09/13/17 14:48 Urine WBC (Auto) 2 /hpf (0-5) 09/13/17 14:48 Urine RBC (Auto) 4 /hpf (0-3) H 09/13/17 14:48 Ur Squamous Epith Cells < 1 /hpf (0-5) 09/13/17 14:48 Urine Bacteria Rare (<OCC) 09/13/17 14:48 B-Hydroxybutyrate 1.82 mM (0.02-0.27) H 09/13/17 14:48 IgG 718.1 mg/dL (700.0-1600.0) 09/15/17 10:00 FANI Nuclear Membr Pat Negative (Negative) 09/15/17 07:23 Hepatitis A IgM Ab Negative (NEGATIVE) 09/15/17 07:23 Hep Bs Antigen Negative (NEGATIVE) 09/15/17 07:23 Hep B Core IgM Ab Negative (NEGATIVE) 09/15/17 07:23 Hepatitis C Antibody Negative (NEGATIVE) 09/15/17 07:23 - Hospital Course Hospital Course: Discharge summary: Patient is a 42-year-old male with a history of diabetes and kidney stones admitted to the hospital with complaining of abdominal pain at least 1 week duration involving the right upper quadrant region. Seen by PMD in the office Dr. Vega, and he was sent to the emergency room because of the elevated WBC, and worsening abdominal pain. Patient had a history of kidney stones, diabetes, history of lithotripsy in 2017. No other surgical history: Nonalcoholic non-smoker He takes only medication for diabetes On admission patient had a significant pain over the right upper quadrant region , and associated with the nausea. Underwent extensive workup including labs and a CAT scan. Labs showing elevated WBC elevated liver enzymes and alkaline phosphatase Sonogram showing evidence of gallstones, pericolic fluid and gallbladder wall thickening suspected acute cholecystitis. Patient started on intravenous antibiotic and IV fluids in the emergency room. Surgical consultation was called in Course in the hospital: Patient was seen by product line manager as well as surgical asst. He underwent a MRCP on 09/14/2017, MRCP showing evidence of cholelithiasis with the gallbladder wall thickening and edema in the arleen-cholecystic liquid suspicious for acute cholecystitis Low injection of the right common bile duct into the common hepatic duct and no evidence of choledocholithiasis. Patient underwent emergency cholecystectomy on 09/14/2017 by the surgeon, laparoscopic. Patient underwent robotic assisted laparoscopic cholecystectomy with minimal blood loss. Tolerated the procedure well. Postoperatively patient continued IV antibiotic His blood sugar is somewhat uncontrolled. Liver enzymes was improving. WBCs 8.3 Patient is tolerating the oral feeding now Otherwise patient is feeling better. He will be discharged home today He will follow-up with the PMD. And also will follow up with the surgical team. Final diagnosis acute cholecystitis, acute severe sepsis, urinary tract infection. Patient will continue ciprofloxacin. Glipizide 10 mg twice a day For pain ibuprofen as needed. Protonix 40 mg daily. We will follow the patient thank you Discharge Exam - Head Exam Head Exam: ATRAUMATIC, NORMOCEPHALIC Discharge Plan - Discharge Medications Prescriptions: GlipiZIDE [Glucotrol] 10 mg PO BID #60 tab Ibuprofen [Ibu] 400 mg PO BID PRN #60 tablet PRN Reason: Pain, Mild (1-3) Levofloxacin [Levaquin] 500 mg PO DAILY #7 tablet Pantoprazole Sodium [Protonix] 40 mg PO DAILY #30 ect - Follow Up Plan Condition: SERIOUS Disposition: HOME/ ROUTINE Additional Instructions: Ok to shower, leave steri-strips in place. f/u with Dr. Aceves in 1 week. No heavy lifting > 15lbs Referrals: Dagoberto Aceves MD [Staff Provider] -
== END 2017-09-17 15:45 | disposition home or self-care (01) | DRG 417 ==
LOC: C.ER 13:09 → C.9E 16:40 → C.3T 17:05
PROVIDERS: ADMIT Internal Medicine; ATTEND Internal Medicine
PROC: 0FB04ZX Excision of Liver, Percutaneous Endoscopic Approach, Diagnostic (ICD-10-PCS; 2017-09-14)
PROC: 8E0W4CZ Robotic Assisted Procedure of Trunk Region, Percutaneous Endoscopic Approach (ICD-10-PCS; 2017-09-14)
PROC: 0F944ZZ Drainage of Gallbladder, Percutaneous Endoscopic Approach (ICD-10-PCS; 2017-09-14)
PROC: 0FT44ZZ Resection of Gallbladder, Percutaneous Endoscopic Approach (ICD-10-PCS; principal; 2017-09-14 09:00)
DX: K80.13 Calculus of gallbladder with acute and chronic cholecystitis with obstruction (principal); A41.9 Sepsis, unspecified organism; R65.20 Severe sepsis without septic shock; N39.0 Urinary tract infection, site not specified; K75.9 Inflammatory liver disease, unspecified; E11.65 Type 2 diabetes mellitus with hyperglycemia; N20.0 Calculus of kidney; E66.01 Morbid (severe) obesity due to excess calories; Z79.84 Long term (current) use of oral hypoglycemic drugs; Z87.442 Personal history of urinary calculi